=== PATIENT | female | born 1955 | race Caucasian/White ===

== ENCOUNTER 2020-10-24 11:15 | Emergency (ER) | payer MEDICAID ==
[~2020-10-24] VITALS: Ht 149.9 cm; Wt 59.1 kg
[~2020-10-24 11:15] MED LIST: LEVO50 PO; QUET100T PO; RISP1TAB7 PO; SERT-162 PO
[2020-10-24] MEDS ORDERED: AmLODIPine BESYLATE 5 MG TABLET PO ONE (14:00)
[2020-10-24 14:23] VITALS: BP 147/78
== END 2020-10-24 14:27 | disposition home or self-care (01) ==
LOC: EMS 13:24
DX: I10 Essential (primary) hypertension (principal); F32.9 Major depressive disorder, single episode, unspecified; F20.9 Schizophrenia, unspecified; F14.90 Cocaine use, unspecified, uncomplicated; F12.90 Cannabis use, unspecified, uncomplicated; Z76.0 Encounter for issue of repeat prescription
CPT/HCPCS: 99283

== ENCOUNTER 2021-04-11 05:17 | Emergency (ER) | payer MEDICAID ==
[~2021-04-11] VITALS: Ht 149.9 cm; Wt 63.6 kg
[2021-04-11] MEDS ORDERED: ACETAMINOPHEN 500 MG TABLET PO ONE (05:30)
[2021-04-11 05:33] VITALS: BP 162/98
== END 2021-04-11 07:10 | disposition home or self-care (01) ==
LOC: EMS 05:17
DX: S09.90XA Unspecified injury of head, initial encounter (principal); E05.90 Thyrotoxicosis, unspecified without thyrotoxic crisis or storm; F20.9 Schizophrenia, unspecified; F32.9 Major depressive disorder, single episode, unspecified; I10 Essential (primary) hypertension; F15.90 Other stimulant use, unspecified, uncomplicated; F14.90 Cocaine use, unspecified, uncomplicated; F12.90 Cannabis use, unspecified, uncomplicated; X58.XXXA Exposure to other specified factors, initial encounter; Y93.89 Activity, other specified; Y92.89 Other specified places as the place of occurrence of the external cause; Y99.8 Other external cause status
CPT/HCPCS: 70450; 72125; 99284

== ENCOUNTER 2021-06-07 17:11 | Inpatient (IN) | payer MEDICAID, OTHER ==
[~2021-06-07] VITALS: Ht 149.9 cm; Wt 55.8 kg
[2021-06-07 18:29] LABS: BASOPHILS % (AUTO) 0.9 % (0.0-2.0); EOSINOPHILS % (AUTO) 1.7 % (1.0-6.0); HEMOGLOBIN 14.2 g/dL (12.0-16.0); LYMPHOCYTES # (AUTO) 1.6 K/uL (1.0-4.8); LYMPHOCYTES % (AUTO) 21.2 % (22.0-44.0); MEAN CORPUSCULAR HEMOGLOBIN 29.1 pg (26.0-34.0); MEAN CORPUSCULAR HGB CONC 34.6 G/dL (31.0-37.0); MEAN CORPUSCULAR VOLUME 84 fL (80-100); MONOCYTES # (AUTO) 0.6 K/uL (0.1-1.0); NEUTROPHILS # (AUTO) 5.2 K/uL (1.8-7.7); NEUTROPHILS % (AUTO) 68.2 % (40.0-70.0); PLATELET COUNT (AUTO) 311 K/uL (150-450); RED BLOOD CELL COUNT(AUTO) 4.87 MIL/uL (4.00-5.20); RED CELL DISTRIBUTION WIDTH 13.6 % (11.5-14.5)
[2021-06-07 18:42] LABS: ANION GAP 11 mmol/L (8-16); CALCIUM, TOTAL 9.8 mg/dL (8.8-10.5); CARBON DIOXIDE 28 mmol/L (22-29); CHLORIDE 103 mmol/L (98-107); CREATININE 0.76 mg/dL (0.60-1.30); GLOMERULAR FILTR. RATE CALC > 60 mL/min (>60); GLUCOSE,RANDOM 106 mg/dL (70-110); POTASSIUM 3.5 mmol/L (3.5-5.1); SODIUM SERUM 142 mmol/L (136-145); UREA NITROGEN, BLOOD 10 mg/dL (7-18)
[2021-06-07 18:49] LABS: ALANINE AMINOTRANSFERASE 19 U/L (12-78); ALBUMIN 3.6 g/dL (3.4-5.0); ALKALINE PHOSPHATASE 71 U/L (46-116); ASPARTATE AMINOTRANSFERASE 21 U/L (15-37); BILIRUBIN,TOTAL 0.6 mg/dL (0.1-1.0); TOTAL PROTEIN, SERUM 7.9 g/dL (6.4-8.2)
[2021-06-07] MEDS ORDERED: DiphenhydrAMINE HCL 50 MG/ML VIAL IM ONE (21:00)
[2021-06-07] MEDS ORDERED: HALOPERIDOL LACTATE 5 MG/ML VIAL IM ONE (21:00)
[2021-06-07] MEDS ORDERED: LORazepam 2 MG/ML VIAL IM ONE (21:00)
[2021-06-07 21:02] LABS: COVID AG,FIA SOURCE NASOPHARYNGEAL
[2021-06-07 21:20] LABS: CHOL/HDL RATIO 2.3 (3.9-5.7); CHOLESTEROL 116 mg/dL (131-200); FREE T4 (FREE THYROXINE) 1.07 ng/dL (0.76-1.46); HDL CHOLESTEROL 50 mg/dL (40-60); LDL CHOL (CALC.) 55 mg/dL (0-130); THYROID STIMULATING HORMONE 0.42 uIU/mL (0.36-3.74); TRIGLYCERIDES 56 mg/dL (15-150)
[2021-06-07] MEDS ORDERED: LORazepam 2 MG TABLET PO ONE (21:30)
[2021-06-07] MEDS ORDERED: HALOPERIDOL 5 MG TABLET PO ONE (21:30)
[2021-06-07] MEDS ORDERED: DiphenhydrAMINE HCL 25 MG CAPSULE PO ONE (21:30)
[2021-06-08 04:47] VITALS: BP 99/69
[2021-06-08 09:31] VITALS: BP 121/71
[2021-06-08] MEDS ORDERED: PETROLATUM,WHITE 28 GM JELLY TP PRN (11:00)
[2021-06-08] MEDS ORDERED: GuaiFENesin/D-METHORPHAN [SUGAR-FREE] 200-20MG/10 ML SYRUP UDCUP PO PRN (11:00)
[2021-06-08] MEDS ORDERED: IBUPROFEN 400 MG TABLET PO PRN (11:00)
[2021-06-08] MEDS ORDERED: MAG HYDROX/AL HYDROX/SIMETH ES 30 ML SUSPENSION UDCUP PO PRN (11:00)
[2021-06-08] MEDS ORDERED: ALBUTEROL SULFATE HFA 90 MCG/PUFF 8 GM INHALER IH PRN (11:00)
[2021-06-08] MEDS ORDERED: ONDANSETRON HCL 4 MG TABLET PO PRN (11:00)
[2021-06-08] MEDS ORDERED: CloNIDine HCL 0.1 MG TABLET PO PRN (11:00)
[2021-06-08] MEDS ORDERED: ACETAMINOPHEN 325 MG TABLET PO PRN (11:00)
[2021-06-08] MEDS ORDERED: LOPERAMIDE HCL 2 MG CAPSULE PO PRN (11:00)
[2021-06-08] MEDS ORDERED: NICOTINE 14 MG/24 HOUR PATCH TD PRN (11:00)
[2021-06-08] MEDS: QUEtiapine FUMARATE 100 MG TABLET PO SCH ×2 (15:11→20:13)
[2021-06-08] MEDS: BuPROPion HCL 150 MG SR TABLET PO SCH (15:11)
[2021-06-08 16:22] VITALS: BP 131/84
[2021-06-09] MEDS ORDERED: INFLUENZA VIRUS VACCINE QVS 2021-22 (6MO+)/PF 60 MCG/0.5 ML SYRINGE IM. ONE (00:30)
[2021-06-09] MEDS ORDERED: PNEUMOCOCCAL VACCINE POLYVALENT 0.5 ML VIAL [PPSV23] IM. ONE (02:00)
[2021-06-09 05:32] VITALS: BP 109/62
[2021-06-09] MEDS: LEVOTHYROXINE SODIUM 50 MCG TABLET PO SCH (06:16)
[2021-06-09] MEDS: QUEtiapine FUMARATE 100 MG TABLET PO SCH ×2 (08:26→20:40)
[2021-06-09] MEDS: BuPROPion HCL 150 MG SR TABLET PO SCH (08:26)
[2021-06-09 08:50] VITALS: BP 143/94
[2021-06-09 16:16] VITALS: BP 142/78
[2021-06-10 00:19] VITALS: BP 134/73
[2021-06-10] MEDS: LEVOTHYROXINE SODIUM 50 MCG TABLET PO SCH (06:17)
[2021-06-10 08:37] VITALS: BP 146/99
[2021-06-10] MEDS: QUEtiapine FUMARATE 100 MG TABLET PO SCH ×2 (08:43→20:17)
[2021-06-10] MEDS: BuPROPion HCL 150 MG SR TABLET PO SCH (08:43)
[2021-06-10 16:41] VITALS: BP 121/80
[2021-06-11 00:29] VITALS: BP 115/69
[2021-06-11] MEDS: LEVOTHYROXINE SODIUM 50 MCG TABLET PO SCH (06:32)
[2021-06-11] MEDS: BuPROPion HCL 150 MG SR TABLET PO SCH (08:36)
[2021-06-11] MEDS: QUEtiapine FUMARATE 100 MG TABLET PO SCH ×2 (08:36→20:22)
[2021-06-11 08:40] VITALS: BP 108/58
[2021-06-11 16:20] VITALS: BP 142/84
[2021-06-12 00:57] VITALS: BP 126/64
[2021-06-12] MEDS: LEVOTHYROXINE SODIUM 50 MCG TABLET PO SCH (06:20)
[2021-06-12 08:45] VITALS: BP 137/78
[2021-06-12] MEDS: HALOPERIDOL 5 MG TABLET PO PRN ×2 (09:40→16:31)
[2021-06-12] MEDS: QUEtiapine FUMARATE 100 MG TABLET PO SCH ×2 (09:40→20:24)
[2021-06-12] MEDS: BuPROPion HCL 150 MG SR TABLET PO SCH (09:40)
[2021-06-12] MEDS: LORazepam 2 MG TABLET PO PRN (16:31)
[2021-06-12 16:47] VITALS: BP 149/99
[2021-06-12] MEDS: DOCUSATE SODIUM 100 MG CAPSULE PO PRN (23:09)
[2021-06-13 01:06] VITALS: BP 126/85
[2021-06-13] MEDS: LEVOTHYROXINE SODIUM 50 MCG TABLET PO SCH (06:30)
[2021-06-13] MEDS: MAGNESIUM HYDROXIDE SUSPENSION 30 ML UDCUP PO PRN (06:51)
[2021-06-13] MEDS: QUEtiapine FUMARATE 100 MG TABLET PO SCH ×2 (08:14→20:35)
[2021-06-13] MEDS: LORazepam 2 MG TABLET PO PRN ×2 (08:14→16:05)
[2021-06-13] MEDS: BuPROPion HCL 150 MG SR TABLET PO SCH (08:14)
[2021-06-13] MEDS: HALOPERIDOL 5 MG TABLET PO PRN (08:14)
[2021-06-13 08:28] VITALS: BP 141/92
[2021-06-13 09:00] LABS: GLUCOMETER DEV NAME(LOC) POC.BV
[2021-06-13] MEDS ORDERED: CloNIDine HCL 0.1 MG TABLET PO ONE (18:30)
[2021-06-13] MEDS: AmLODIPine BESYLATE 5 MG TABLET PO SCH (20:44)
[2021-06-14 00:26] VITALS: BP 139/84
[2021-06-14] MEDS: LEVOTHYROXINE SODIUM 50 MCG TABLET PO SCH (06:39)
[2021-06-14 08:29] VITALS: BP 130/77
[2021-06-14] MEDS: QUEtiapine FUMARATE 100 MG TABLET PO SCH ×2 (09:35→20:14)
[2021-06-14] MEDS: BuPROPion HCL 150 MG SR TABLET PO SCH (09:35)
[2021-06-14] MEDS: AmLODIPine BESYLATE 5 MG TABLET PO SCH (09:35)
[2021-06-14 16:24] VITALS: BP 115/62
[2021-06-14] MEDS: MAGNESIUM HYDROXIDE SUSPENSION 30 ML UDCUP PO PRN (20:14)
[2021-06-14] MEDS ORDERED: BISACODYL 5 MG EC TABLET PO PRN (21:15)
[2021-06-15 01:23] VITALS: BP 121/72
[2021-06-15] MEDS: LEVOTHYROXINE SODIUM 50 MCG TABLET PO SCH (06:18)
[2021-06-15 08:21] VITALS: BP 126/96
[2021-06-15] MEDS: QUEtiapine FUMARATE 100 MG TABLET PO SCH ×2 (08:37→20:46)
[2021-06-15] MEDS: BuPROPion HCL 150 MG SR TABLET PO SCH (08:37)
[2021-06-15] MEDS: AmLODIPine BESYLATE 5 MG TABLET PO SCH (08:37)
[2021-06-15 16:17] VITALS: BP 122/86
[2021-06-15] MEDS ORDERED: DiphenhydrAMINE HCL 50 MG/ML VIAL ONE (19:38)
[2021-06-15] MEDS ORDERED: HALOPERIDOL LACTATE 5 MG/ML VIAL ONE (19:38)
[2021-06-15] MEDS ORDERED: LORazepam 2 MG/ML VIAL ONE (19:38)
[2021-06-15] MEDS ORDERED: DiphenhydrAMINE HCL 50 MG/ML VIAL IM ONE (20:00)
[2021-06-15] MEDS ORDERED: HALOPERIDOL LACTATE 5 MG/ML VIAL IM ONE (20:00)
[2021-06-15] MEDS ORDERED: LORazepam 2 MG/ML VIAL IM ONE (20:00)
[2021-06-16 01:49] VITALS: BP 123/75
[2021-06-16] MEDS: LEVOTHYROXINE SODIUM 50 MCG TABLET PO SCH (06:30)
[2021-06-16 08:39] VITALS: BP 144/102
[2021-06-16] MEDS: BuPROPion HCL 150 MG SR TABLET PO SCH (08:39)
[2021-06-16] MEDS: AmLODIPine BESYLATE 5 MG TABLET PO SCH (08:40)
[2021-06-16] MEDS: LORazepam 2 MG TABLET PO PRN (08:40)
[2021-06-16] MEDS: QUEtiapine FUMARATE 100 MG TABLET PO SCH (08:40)
[2021-06-16] MEDS ORDERED: CHOL-35 PO (11:03)
[2021-06-16] MEDS ORDERED: LOSA-382 PO (11:03)
[2021-06-16] MEDS ORDERED: PRAZ2 PO (11:03)
[2021-06-16] MEDS ORDERED: BUPR-49 PO (11:03)
[2021-06-16 16:28] VITALS: BP 129/88
[2021-06-16] MEDS: QUEtiapine FUMARATE 200 MG TABLET PO SCH (20:10)
[2021-06-17 01:32] VITALS: BP 124/82
[2021-06-17] MEDS: LEVOTHYROXINE SODIUM 50 MCG TABLET PO SCH (06:29)
[2021-06-17 08:12] VITALS: BP 115/81
[2021-06-17] MEDS: AmLODIPine BESYLATE 5 MG TABLET PO SCH (09:21)
[2021-06-17] MEDS: QUEtiapine FUMARATE 200 MG TABLET PO SCH ×2 (09:21→20:34)
[2021-06-17] MEDS: BuPROPion HCL 150 MG SR TABLET PO SCH (09:21)
[2021-06-17 16:31] VITALS: BP 121/80
[2021-06-18] MEDS: LEVOTHYROXINE SODIUM 50 MCG TABLET PO SCH (06:48)
[2021-06-18 08:54] VITALS: BP 131/78
[2021-06-18] MEDS: BuPROPion HCL 150 MG SR TABLET PO SCH (09:47)
[2021-06-18] MEDS: MAGNESIUM HYDROXIDE SUSPENSION 30 ML UDCUP PO PRN (09:48)
[2021-06-18] MEDS: QUEtiapine FUMARATE 200 MG TABLET PO SCH ×2 (09:48→20:32)
[2021-06-18] MEDS: AmLODIPine BESYLATE 5 MG TABLET PO SCH (09:48)
[2021-06-18 16:37] VITALS: BP 117/78
[2021-06-18] MEDS: ZOLPIDEM TARTRATE 10 MG TABLET PO PRN (20:32)
[2021-06-19 02:59] VITALS: BP 112/73
[2021-06-19] MEDS: LORazepam 2 MG TABLET PO PRN (03:01)
[2021-06-19] MEDS: LEVOTHYROXINE SODIUM 50 MCG TABLET PO SCH (06:05)
[2021-06-19 08:39] VITALS: BP 130/65
[2021-06-19] MEDS: QUEtiapine FUMARATE 200 MG TABLET PO SCH ×2 (08:49→20:32)
[2021-06-19] MEDS: AmLODIPine BESYLATE 5 MG TABLET PO SCH (08:51)
[2021-06-19] MEDS: BuPROPion HCL 150 MG SR TABLET PO SCH (08:55)
[2021-06-19] MEDS: MAGNESIUM HYDROXIDE SUSPENSION 30 ML UDCUP PO PRN (09:20)
[2021-06-19] MEDS: DOCUSATE SODIUM 100 MG CAPSULE PO PRN (09:20)
[2021-06-19 16:24] VITALS: BP 106/78
[2021-06-20 03:04] VITALS: BP 109/76
[2021-06-20] MEDS: LEVOTHYROXINE SODIUM 50 MCG TABLET PO SCH (06:31)
[2021-06-20 08:22] VITALS: BP 123/72
[2021-06-20] MEDS: BuPROPion HCL 150 MG SR TABLET PO SCH (08:43)
[2021-06-20] MEDS: QUEtiapine FUMARATE 200 MG TABLET PO SCH ×2 (08:43→20:22)
[2021-06-20] MEDS: AmLODIPine BESYLATE 5 MG TABLET PO SCH (08:43)
[2021-06-20 10:16] LABS: GLUCOMETER DEV NAME(LOC) POC.BV
[2021-06-20 16:13] VITALS: BP 120/78
[2021-06-20] MEDS: DOCUSATE SODIUM 100 MG CAPSULE PO PRN (21:28)
[2021-06-21 00:32] VITALS: BP 107/68
[2021-06-21] MEDS: LEVOTHYROXINE SODIUM 50 MCG TABLET PO SCH (06:48)
[2021-06-21 08:31] VITALS: BP 109/59
[2021-06-21 09:45] VITALS: BP 123/86
[2021-06-21] MEDS: QUEtiapine FUMARATE 200 MG TABLET PO SCH ×2 (09:47→20:08)
[2021-06-21] MEDS: BuPROPion HCL 150 MG SR TABLET PO SCH (09:47)
[2021-06-21] MEDS: AmLODIPine BESYLATE 5 MG TABLET PO SCH (09:47)
[2021-06-21 16:13] VITALS: BP 103/76
[2021-06-21] MEDS: DOCUSATE SODIUM 100 MG CAPSULE PO PRN (17:30)
[2021-06-22 01:10] VITALS: BP 104/68
[2021-06-22] MEDS: LEVOTHYROXINE SODIUM 50 MCG TABLET PO SCH (06:06)
[2021-06-22 08:27] VITALS: BP 134/78
[2021-06-22] MEDS: AmLODIPine BESYLATE 5 MG TABLET PO SCH (10:00)
[2021-06-22] MEDS: QUEtiapine FUMARATE 200 MG TABLET PO SCH ×2 (10:00→20:08)
[2021-06-22] MEDS: BuPROPion HCL 150 MG SR TABLET PO SCH (10:00)
[2021-06-22 16:09] VITALS: BP 121/84
[2021-06-22] MEDS: MAGNESIUM HYDROXIDE SUSPENSION 30 ML UDCUP PO PRN (20:08)
[2021-06-23 01:55] VITALS: BP 112/79
[2021-06-23] MEDS: ZOLPIDEM TARTRATE 10 MG TABLET PO PRN (02:03)
[2021-06-23] MEDS: LEVOTHYROXINE SODIUM 50 MCG TABLET PO SCH (06:08)
[2021-06-23 09:06] VITALS: BP 125/76
[2021-06-23] MEDS: QUEtiapine FUMARATE 200 MG TABLET PO SCH ×2 (09:13→20:37)
[2021-06-23] MEDS: BuPROPion HCL 150 MG SR TABLET PO SCH (09:13)
[2021-06-23] MEDS: AmLODIPine BESYLATE 5 MG TABLET PO SCH (09:13)
[2021-06-23 16:05] VITALS: BP 129/64
[2021-06-24] MEDS: LEVOTHYROXINE SODIUM 50 MCG TABLET PO SCH (06:03)
[2021-06-24 08:23] VITALS: BP 128/78
[2021-06-24] MEDS: QUEtiapine FUMARATE 200 MG TABLET PO SCH ×2 (08:23→20:34)
[2021-06-24] MEDS: AmLODIPine BESYLATE 5 MG TABLET PO SCH (08:23)
[2021-06-24] MEDS: BuPROPion HCL 150 MG SR TABLET PO SCH (08:23)
[2021-06-24] MEDS: LORazepam 2 MG TABLET PO PRN (08:27)
[2021-06-24 16:14] VITALS: BP 117/71
[2021-06-25 01:56] VITALS: BP 120/84
[2021-06-25] MEDS: LEVOTHYROXINE SODIUM 50 MCG TABLET PO SCH (06:30)
[2021-06-25] MEDS: AmLODIPine BESYLATE 5 MG TABLET PO SCH (08:17)
[2021-06-25] MEDS: BuPROPion HCL 150 MG SR TABLET PO SCH (08:17)
[2021-06-25] MEDS: QUEtiapine FUMARATE 200 MG TABLET PO SCH ×2 (08:17→20:16)
[2021-06-25 08:18] VITALS: BP 114/65
[2021-06-25 16:15] VITALS: BP 109/75
[2021-06-26 00:29] VITALS: BP 128/85
[2021-06-26] MEDS: ZOLPIDEM TARTRATE 10 MG TABLET PO PRN (00:31)
[2021-06-26] MEDS: LEVOTHYROXINE SODIUM 50 MCG TABLET PO SCH (06:19)
[2021-06-26 08:13] VITALS: BP 113/70
[2021-06-26] MEDS: AmLODIPine BESYLATE 5 MG TABLET PO SCH (09:28)
[2021-06-26] MEDS: QUEtiapine FUMARATE 200 MG TABLET PO SCH ×2 (09:28→20:33)
[2021-06-26] MEDS: BuPROPion HCL 150 MG SR TABLET PO SCH (09:28)
[2021-06-26 16:15] VITALS: BP 109/75
[2021-06-27] MEDS: ZOLPIDEM TARTRATE 10 MG TABLET PO PRN (00:14)
[2021-06-27 01:10] VITALS: BP 119/78
[2021-06-27] MEDS: LEVOTHYROXINE SODIUM 50 MCG TABLET PO SCH (06:28)
[2021-06-27] MEDS: QUEtiapine FUMARATE 200 MG TABLET PO SCH ×2 (08:24→20:35)
[2021-06-27] MEDS: AmLODIPine BESYLATE 5 MG TABLET PO SCH (08:24)
[2021-06-27] MEDS: BuPROPion HCL 150 MG SR TABLET PO SCH (08:24)
[2021-06-27 08:32] VITALS: BP 117/63
[2021-06-27 09:30] LABS: GLUCOMETER DEV NAME(LOC) POC.BV
[2021-06-27 16:07] VITALS: BP 111/66
[2021-06-28 00:34] VITALS: BP 123/71
[2021-06-28] MEDS: LEVOTHYROXINE SODIUM 50 MCG TABLET PO SCH (06:35)
[2021-06-28 08:16] VITALS: BP 131/78
[2021-06-28] MEDS: AmLODIPine BESYLATE 5 MG TABLET PO SCH (08:16)
[2021-06-28] MEDS: QUEtiapine FUMARATE 200 MG TABLET PO SCH ×2 (08:16→20:29)
[2021-06-28] MEDS: BuPROPion HCL 150 MG SR TABLET PO SCH (08:16)
[2021-06-28] MEDS ORDERED: AmLODIPine BESYLATE 2.5 MG TABLET PO ONE (12:30)
[2021-06-28 16:31] VITALS: BP 116/78
[2021-06-28] MEDS: MECLIZINE HCL 25 MG TABLET PO PRN (20:29)
[2021-06-29] MEDS: LEVOTHYROXINE SODIUM 50 MCG TABLET PO SCH (06:24)
[2021-06-29 08:17] VITALS: BP 117/74
[2021-06-29] MEDS: QUEtiapine FUMARATE 200 MG TABLET PO SCH ×2 (08:37→20:12)
[2021-06-29] MEDS: AmLODIPine BESYLATE 5 MG TABLET PO SCH (08:37)
[2021-06-29] MEDS: BuPROPion HCL 150 MG SR TABLET PO SCH (08:37)
[2021-06-29 16:17] VITALS: BP 110/73
[2021-06-29] MEDS: MECLIZINE HCL 25 MG TABLET PO PRN (16:26)
[2021-06-30 00:34] VITALS: BP 118/72
[2021-06-30] MEDS: LEVOTHYROXINE SODIUM 50 MCG TABLET PO SCH (06:11)
[2021-06-30 08:13] VITALS: BP 102/65
[2021-06-30] MEDS: BuPROPion HCL 150 MG SR TABLET PO SCH (08:48)
[2021-06-30] MEDS: QUEtiapine FUMARATE 200 MG TABLET PO SCH ×2 (08:48→20:15)
[2021-06-30] MEDS: AmLODIPine BESYLATE 5 MG TABLET PO SCH (08:49)
[2021-06-30] MEDS: HALOPERIDOL 5 MG TABLET PO PRN (16:06)
[2021-06-30 16:10] VITALS: BP 108/76
[2021-06-30] MEDS: MECLIZINE HCL 25 MG TABLET PO PRN (19:24)
[2021-07-01 00:40] VITALS: BP 111/71
[2021-07-01] MEDS: LEVOTHYROXINE SODIUM 50 MCG TABLET PO SCH (06:17)
[2021-07-01 08:19] VITALS: BP 117/74
[2021-07-01] MEDS: AmLODIPine BESYLATE 5 MG TABLET PO SCH (08:27)
[2021-07-01] MEDS: QUEtiapine FUMARATE 200 MG TABLET PO SCH ×2 (08:27→20:54)
[2021-07-01] MEDS: BuPROPion HCL 150 MG SR TABLET PO SCH (08:27)
[2021-07-01] MEDS: MECLIZINE HCL 25 MG TABLET PO PRN (12:17)
[2021-07-01 16:12] VITALS: BP 116/75
[2021-07-01] MEDS: MAGNESIUM HYDROXIDE SUSPENSION 30 ML UDCUP PO PRN (19:42)
[2021-07-02 00:16] VITALS: BP 120/81
[2021-07-02] MEDS: LEVOTHYROXINE SODIUM 50 MCG TABLET PO SCH (06:52)
[2021-07-02] MEDS: BuPROPion HCL 150 MG SR TABLET PO SCH (08:45)
[2021-07-02] MEDS: QUEtiapine FUMARATE 200 MG TABLET PO SCH ×2 (08:45→20:31)
[2021-07-02] MEDS: AmLODIPine BESYLATE 5 MG TABLET PO SCH (08:45)
[2021-07-02 08:59] VITALS: BP 114/74
[2021-07-02] MEDS: MECLIZINE HCL 25 MG TABLET PO PRN ×2 (12:25→20:29)
[2021-07-02 14:56] LABS: GLUCOMETER DEV NAME(LOC) POC.BV
[2021-07-02 16:13] VITALS: BP 117/78
[2021-07-02] MEDS: MAGNESIUM HYDROXIDE SUSPENSION 30 ML UDCUP PO PRN (20:30)
[2021-07-03 00:53] VITALS: BP 124/82
[2021-07-03] MEDS: LEVOTHYROXINE SODIUM 50 MCG TABLET PO SCH (06:24)
[2021-07-03 08:12] VITALS: BP 116/85
[2021-07-03] MEDS: AmLODIPine BESYLATE 5 MG TABLET PO SCH (08:31)
[2021-07-03] MEDS: QUEtiapine FUMARATE 200 MG TABLET PO SCH (08:31)
[2021-07-03] MEDS: BuPROPion HCL 150 MG SR TABLET PO SCH (08:31)
[2021-07-03] MEDS: MECLIZINE HCL 25 MG TABLET PO PRN (08:59)
[2021-07-03] MEDS ORDERED: QUET200T PO ×2 (09:07)
[2021-07-03] MEDS ORDERED: BUPR150SR PO ×2 (09:08→10:11)
[2021-07-03] MEDS ORDERED: AMLO-257 PO ×2 (09:09→14:05)
[2021-07-03] MEDS ORDERED: QUET200T30 PO (10:11)
[2021-07-03] MEDS ORDERED: CHOL200074 PO (14:05)
[2021-07-03] MEDS ORDERED: LOSA-382 PO (14:05)
[2021-07-03] MEDS ORDERED: LEVO50 PO (14:05)
== END 2021-07-03 09:55 | disposition home or self-care (01) | DRG 750 ==
LOC: EMS 17:16 → B2S 06-08 01:40
PROVIDERS: ADMIT Psychiatry & Neurology Child & Adolescent Psychiatry; ATTEND Psychiatry & Neurology Child & Adolescent Psychiatry
DX: F25.1 Schizoaffective disorder, depressive type (principal); R45.851 Suicidal ideations; Z59.00 Homelessness unspecified; B18.2 Chronic viral hepatitis C; F41.9 Anxiety disorder, unspecified; I10 Essential (primary) hypertension; E89.0 Postprocedural hypothyroidism; F17.200 Nicotine dependence, unspecified, uncomplicated; F32.A Depression, unspecified; Z20.822 Contact with and (suspected) exposure to COVID-19; Z79.899 Other long term (current) drug therapy
CPT/HCPCS: 80053; 80061; 84439; 84443; 85025; 87081; 90686; 90732; 99285; G0480; J1200; J1630; J2060

== ENCOUNTER 2021-08-16 15:15 | Inpatient (IN) | payer MEDICAID, OTHER ==
[~2021-08-16] VITALS: Ht 149.9 cm; Wt 68.1 kg
[~2021-08-16 15:15] MED LIST changes: +AMLO-257 PO; +BUPR-290 PO; +CHOL200074 PO; +LOSA-382 PO; -QUET100T PO; +QUET200T PO; +QUET200T30 PO; -RISP1TAB7 PO; -SERT-162 PO
[2021-08-16 16:21] LABS: EOSINOPHILS % (AUTO) 4.2 % (1.0-6.0); HEMATOCRIT 36.9 % (36-46); HEMOGLOBIN 12.7 g/dL (12.0-16.0); LYMPHOCYTES # (AUTO) 1.3 K/uL (1.0-4.8); LYMPHOCYTES % (AUTO) 25.5 % (22.0-44.0); MEAN CORPUSCULAR HEMOGLOBIN 29.7 pg (26.0-34.0); MEAN CORPUSCULAR HGB CONC 34.4 G/dL (31.0-37.0); MEAN CORPUSCULAR VOLUME 87 fL (80-100); MONOCYTES # (AUTO) 0.4 K/uL (0.1-1.0); MONOCYTES % (AUTO) 7.2 % (2.0-9.0); NEUTROPHILS # (AUTO) 3.1 K/uL (1.8-7.7); NEUTROPHILS % (AUTO) 62.1 % (40.0-70.0); PLATELET COUNT (AUTO) 254 K/uL (150-450); RED BLOOD CELL COUNT(AUTO) 4.26 MIL/uL (4.00-5.20); RED CELL DISTRIBUTION WIDTH 13.9 % (11.5-14.5)
[2021-08-16 16:30] LABS: APPEARANCE,URINE HAZY (CLEAR); BILIRUBIN,URINE NEGATIVE (NEGATIVE); GLUCOSE, URINE (UA) NEGATIVE (NEGATIVE); KETONES,URINE NEGATIVE (NEGATIVE); LEUKOCYTE ESTERASE ,URINE SMALL (NEGATIVE); NITRATE,URINE POSITIVE (NEGATIVE); OCCULT BLOOD,URINE NEGATIVE (NEGATIVE); PROTEIN,URINE NEGATIVE (NEGATIVE); SPECIFIC GRAVITIY, URINE 1.014 (1.003-1.030); UROBILINOGEN,URINE <=1.0 mg/dL (<=1.0)
[2021-08-16 16:36] LABS: AMPHET/METH SCREEN,URINE POSITIVE (NEGATIVE); BARBITURATE SCREEN, URINE NEGATIVE (NEGATIVE); BENZODIAZEPINES SCREEN,URINE NEGATIVE (NEGATIVE); CANNABINOID SCREEN,URINE NEGATIVE (NEGATIVE); COCAINE SCREEN,URINE NEGATIVE (NEGATIVE); METHADONE SCREEN, URINE NEGATIVE (NEGATIVE); OPIATE SCREEN,URINE NEGATIVE (NEGATIVE)
[2021-08-16 16:38] LABS: PHENCYCLIDINE SCREEN,URINE NEGATIVE (NEGATIVE)
[2021-08-16 16:41] LABS: ANION GAP 9 mmol/L (8-16); CALCIUM, TOTAL 8.4 mg/dL (8.8-10.5); CARBON DIOXIDE 25 mmol/L (22-29); CHLORIDE 108 mmol/L (98-107); CREATININE 0.58 mg/dL (0.60-1.30); GLUCOSE,RANDOM 90 mg/dL (70-110); POTASSIUM 3.6 mmol/L (3.5-5.1); SODIUM SERUM 142 mmol/L (136-145); UREA NITROGEN, BLOOD 10 mg/dL (7-18)
[2021-08-16 16:42] LABS: GLOMERULAR FILTR. RATE CALC > 60 mL/min (>60)
[2021-08-16] MEDS ORDERED: LORazepam 1 MG TABLET PO ONE (16:45)
[2021-08-16] MEDS ORDERED: DiphenhydrAMINE HCL 25 MG CAPSULE PO ONE (16:45)
[2021-08-16] MEDS ORDERED: HALOPERIDOL 5 MG TABLET PO ONE (16:45)
[2021-08-16 16:53] LABS: ALANINE AMINOTRANSFERASE 43 U/L (12-78); ALBUMIN 3.2 g/dL (3.4-5.0); ALKALINE PHOSPHATASE 71 U/L (46-116); ASPARTATE AMINOTRANSFERASE 29 U/L (15-37); BILIRUBIN,TOTAL 0.5 mg/dL (0.1-1.0); HCG,QUANTITATIVE 3 mIU/mL (0-6); THYROID STIMULATING HORMONE 0.94 uIU/mL (0.36-3.74); TOTAL PROTEIN, SERUM 6.7 g/dL (6.4-8.2)
[2021-08-16 16:57] LABS: BACTERIA,URINE Many /HPF (None Seen); RBC,URINE None Seen /HPF (0-2); SQUAMOUS EPITHELIAL CELL,UR Few /LPF (None Seen)
[2021-08-16] MEDS ORDERED: CEPHALEXIN MONOHYDRATE 500 MG CAPSULE PO ONE (17:00)
[2021-08-16 17:03] LABS: COVID AG,FIA SOURCE NASAL SWAB
[2021-08-16 19:00] VITALS: BP 126/86
[2021-08-17] MEDS ORDERED: LEVOTHYROXINE SODIUM 50 MCG TABLET PO SCH (07:00)
[2021-08-17 08:55] VITALS: BP 147/72
[2021-08-17] MEDS ORDERED: AmLODIPine BESYLATE 5 MG TABLET PO SCH (09:00)
[2021-08-17] MEDS: BuPROPion HCL 150 MG SR TABLET PO SCH (15:18)
[2021-08-17] MEDS: QUEtiapine FUMARATE 200 MG TABLET PO SCH ×2 (15:18→20:38)
[2021-08-17] MEDS ORDERED: ALBUTEROL SULFATE HFA 90 MCG/PUFF 8 GM INHALER IH PRN (15:45)
[2021-08-17] MEDS ORDERED: LOPERAMIDE HCL 2 MG CAPSULE PO PRN (15:45)
[2021-08-17] MEDS ORDERED: DOCUSATE SODIUM 100 MG CAPSULE PO PRN (15:45)
[2021-08-17] MEDS ORDERED: NICOTINE 14 MG/24 HOUR PATCH TD PRN (15:45)
[2021-08-17] MEDS ORDERED: ONDANSETRON HCL 4 MG TABLET PO PRN (15:45)
[2021-08-17] MEDS ORDERED: CloNIDine HCL 0.1 MG TABLET PO PRN (15:45)
[2021-08-17] MEDS ORDERED: ACETAMINOPHEN 325 MG TABLET PO PRN (15:45)
[2021-08-17] MEDS ORDERED: GuaiFENesin/D-METHORPHAN [SUGAR-FREE] 200-20MG/10 ML SYRUP UDCUP PO PRN (15:45)
[2021-08-17] MEDS ORDERED: PETROLATUM,WHITE 28 GM JELLY TP PRN (15:45)
[2021-08-17] MEDS ORDERED: MAGNESIUM HYDROXIDE SUSPENSION 30 ML UDCUP PO PRN (15:45)
[2021-08-17 16:54] VITALS: BP 116/65
[2021-08-18] MEDS: LEVOTHYROXINE SODIUM 50 MCG TABLET PO SCH (06:44)
[2021-08-18] MEDS: LOSARTAN POTASSIUM 50 MG TABLET PO SCH (08:48)
[2021-08-18] MEDS: CHOLECALCIFEROL (VIT D3) 1,000 UNITS [25 MCG] TABLET PO SCH (08:48)
[2021-08-18] MEDS: BuPROPion HCL 150 MG SR TABLET PO SCH (08:48)
[2021-08-18] MEDS: AmLODIPine BESYLATE 5 MG TABLET PO SCH (08:49)
[2021-08-18] MEDS: QUEtiapine FUMARATE 200 MG TABLET PO SCH ×2 (08:49→20:04)
[2021-08-18 09:33] VITALS: BP 152/94
[2021-08-18 16:27] VITALS: BP 140/87
[2021-08-18] MEDS: CIPROFLOXACIN HCL 500 MG TABLET PO SCH (21:25)
[2021-08-19 02:04] VITALS: BP 127/87
[2021-08-19] MEDS: ZOLPIDEM TARTRATE 10 MG TABLET PO PRN (02:04)
[2021-08-19] MEDS: LEVOTHYROXINE SODIUM 50 MCG TABLET PO SCH (06:26)
[2021-08-19 08:30] VITALS: BP 149/89
[2021-08-19] MEDS: LOSARTAN POTASSIUM 50 MG TABLET PO SCH (08:36)
[2021-08-19] MEDS: QUEtiapine FUMARATE 200 MG TABLET PO SCH ×2 (08:36→20:12)
[2021-08-19] MEDS: BuPROPion HCL 150 MG SR TABLET PO SCH (08:36)
[2021-08-19] MEDS: CHOLECALCIFEROL (VIT D3) 1,000 UNITS [25 MCG] TABLET PO SCH (08:36)
[2021-08-19] MEDS: AmLODIPine BESYLATE 5 MG TABLET PO SCH (08:36)
[2021-08-19] MEDS: CIPROFLOXACIN HCL 500 MG TABLET PO SCH ×2 (09:40→16:14)
[2021-08-19 16:00] VITALS: BP 131/81
[2021-08-19 17:13] VITALS: BP 131/81
[2021-08-20 02:44] VITALS: BP 127/74
[2021-08-20] MEDS: IBUPROFEN 400 MG TABLET PO PRN (02:44)
[2021-08-20] MEDS: LEVOTHYROXINE SODIUM 50 MCG TABLET PO SCH (06:16)
[2021-08-20] MEDS: QUEtiapine FUMARATE 200 MG TABLET PO SCH ×2 (08:40→20:12)
[2021-08-20] MEDS: CHOLECALCIFEROL (VIT D3) 1,000 UNITS [25 MCG] TABLET PO SCH (08:41)
[2021-08-20] MEDS: LOSARTAN POTASSIUM 50 MG TABLET PO SCH (08:41)
[2021-08-20] MEDS: AmLODIPine BESYLATE 5 MG TABLET PO SCH (08:41)
[2021-08-20] MEDS: BuPROPion HCL 150 MG SR TABLET PO SCH (08:42)
[2021-08-20] MEDS: CIPROFLOXACIN HCL 500 MG TABLET PO SCH ×2 (08:42→16:10)
[2021-08-20 09:38] VITALS: BP 154/95
[2021-08-20 16:00] VITALS: BP 138/88
[2021-08-20] MEDS: ZOLPIDEM TARTRATE 10 MG TABLET PO PRN (20:57)
[2021-08-21 04:24] VITALS: BP 109/73
[2021-08-21] MEDS: LEVOTHYROXINE SODIUM 50 MCG TABLET PO SCH (06:30)
[2021-08-21] MEDS: CIPROFLOXACIN HCL 500 MG TABLET PO SCH ×2 (08:19→16:50)
[2021-08-21] MEDS: QUEtiapine FUMARATE 200 MG TABLET PO SCH ×2 (08:19→20:22)
[2021-08-21] MEDS: CHOLECALCIFEROL (VIT D3) 1,000 UNITS [25 MCG] TABLET PO SCH (08:20)
[2021-08-21] MEDS: BuPROPion HCL 150 MG SR TABLET PO SCH (08:20)
[2021-08-21] MEDS: AmLODIPine BESYLATE 5 MG TABLET PO SCH (08:20)
[2021-08-21] MEDS: LOSARTAN POTASSIUM 50 MG TABLET PO SCH (08:20)
[2021-08-21 08:51] VITALS: BP 168/105
[2021-08-21 16:53] VITALS: BP 128/85
[2021-08-21] MEDS: HALOPERIDOL 5 MG TABLET PO PRN (17:35)
[2021-08-21] MEDS: ZOLPIDEM TARTRATE 10 MG TABLET PO PRN (20:50)
[2021-08-22] MEDS: LEVOTHYROXINE SODIUM 50 MCG TABLET PO SCH (06:44)
[2021-08-22 08:30] VITALS: BP 157/100
[2021-08-22] MEDS: LOSARTAN POTASSIUM 50 MG TABLET PO SCH (08:42)
[2021-08-22] MEDS: CIPROFLOXACIN HCL 500 MG TABLET PO SCH ×2 (08:42→17:06)
[2021-08-22] MEDS: BuPROPion HCL 150 MG SR TABLET PO SCH (08:45)
[2021-08-22] MEDS: AmLODIPine BESYLATE 5 MG TABLET PO SCH (08:45)
[2021-08-22] MEDS: CHOLECALCIFEROL (VIT D3) 1,000 UNITS [25 MCG] TABLET PO SCH (08:45)
[2021-08-22] MEDS: QUEtiapine FUMARATE 200 MG TABLET PO SCH ×2 (08:45→20:00)
[2021-08-22 16:21] VITALS: BP 121/79
[2021-08-22] MEDS: ZOLPIDEM TARTRATE 10 MG TABLET PO PRN (20:23)
[2021-08-23] MEDS: LEVOTHYROXINE SODIUM 50 MCG TABLET PO SCH (06:20)
[2021-08-23] MEDS: BuPROPion HCL 150 MG SR TABLET PO SCH (08:29)
[2021-08-23] MEDS: CHOLECALCIFEROL (VIT D3) 1,000 UNITS [25 MCG] TABLET PO SCH (08:29)
[2021-08-23] MEDS: QUEtiapine FUMARATE 200 MG TABLET PO SCH ×2 (08:29→20:23)
[2021-08-23] MEDS: LOSARTAN POTASSIUM 50 MG TABLET PO SCH (08:29)
[2021-08-23] MEDS: CIPROFLOXACIN HCL 500 MG TABLET PO SCH (08:29)
[2021-08-23] MEDS: AmLODIPine BESYLATE 5 MG TABLET PO SCH (08:30)
[2021-08-23 08:59] VITALS: BP 155/96
[2021-08-23 09:58] LABS: COVID AG,FIA SOURCE NASAL SWAB
[2021-08-23 16:25] VITALS: BP 130/85
[2021-08-23] MEDS: ZOLPIDEM TARTRATE 10 MG TABLET PO PRN (21:09)
[2021-08-24] MEDS: LEVOTHYROXINE SODIUM 50 MCG TABLET PO SCH (06:58)
[2021-08-24 08:00] VITALS: BP 136/84
[2021-08-24] MEDS: AmLODIPine BESYLATE 5 MG TABLET PO SCH (08:52)
[2021-08-24] MEDS: BuPROPion HCL 150 MG SR TABLET PO SCH (08:52)
[2021-08-24] MEDS: CHOLECALCIFEROL (VIT D3) 1,000 UNITS [25 MCG] TABLET PO SCH (08:52)
[2021-08-24] MEDS: LOSARTAN POTASSIUM 50 MG TABLET PO SCH (08:52)
[2021-08-24] MEDS: QUEtiapine FUMARATE 200 MG TABLET PO SCH ×2 (08:52→20:24)
[2021-08-24 16:00] VITALS: BP 133/83
[2021-08-24] MEDS: ZOLPIDEM TARTRATE 10 MG TABLET PO PRN (21:10)
[2021-08-25 02:20] VITALS: BP 111/66
[2021-08-25] MEDS: LORazepam 2 MG TABLET PO PRN (02:27)
[2021-08-25] MEDS: LEVOTHYROXINE SODIUM 50 MCG TABLET PO SCH (06:24)
[2021-08-25 08:00] VITALS: BP 153/72
[2021-08-25] MEDS: AmLODIPine BESYLATE 5 MG TABLET PO SCH (09:43)
[2021-08-25] MEDS: QUEtiapine FUMARATE 200 MG TABLET PO SCH ×2 (09:43→20:02)
[2021-08-25] MEDS: CHOLECALCIFEROL (VIT D3) 1,000 UNITS [25 MCG] TABLET PO SCH (09:44)
[2021-08-25] MEDS: BuPROPion HCL 150 MG SR TABLET PO SCH (09:44)
[2021-08-25] MEDS: LOSARTAN POTASSIUM 50 MG TABLET PO SCH (09:46)
[2021-08-25 16:44] VITALS: BP 103/60
[2021-08-26] MEDS: LEVOTHYROXINE SODIUM 50 MCG TABLET PO SCH (06:18)
[2021-08-26] MEDS: LOSARTAN POTASSIUM 50 MG TABLET PO SCH (08:08)
[2021-08-26] MEDS: BuPROPion HCL 150 MG SR TABLET PO SCH (08:08)
[2021-08-26] MEDS: CHOLECALCIFEROL (VIT D3) 1,000 UNITS [25 MCG] TABLET PO SCH (08:08)
[2021-08-26] MEDS: QUEtiapine FUMARATE 200 MG TABLET PO SCH ×2 (08:08→20:21)
[2021-08-26] MEDS: AmLODIPine BESYLATE 5 MG TABLET PO SCH (08:08)
[2021-08-26 08:43] VITALS: BP 123/71
[2021-08-26 16:31] VITALS: BP 101/69
[2021-08-26] MEDS: ZOLPIDEM TARTRATE 10 MG TABLET PO PRN (23:47)
[2021-08-27] MEDS: LEVOTHYROXINE SODIUM 50 MCG TABLET PO SCH (06:47)
[2021-08-27] MEDS: LOSARTAN POTASSIUM 50 MG TABLET PO SCH (08:57)
[2021-08-27] MEDS: CHOLECALCIFEROL (VIT D3) 1,000 UNITS [25 MCG] TABLET PO SCH (08:57)
[2021-08-27] MEDS: QUEtiapine FUMARATE 200 MG TABLET PO SCH ×2 (08:57→20:05)
[2021-08-27] MEDS: AmLODIPine BESYLATE 5 MG TABLET PO SCH (08:57)
[2021-08-27] MEDS: BuPROPion HCL 150 MG SR TABLET PO SCH (08:57)
[2021-08-27 08:58] VITALS: BP 135/80
[2021-08-27] MEDS: IBUPROFEN 400 MG TABLET PO PRN (15:02)
[2021-08-27 15:04] VITALS: BP 136/79
[2021-08-27 16:14] VITALS: BP 108/79
[2021-08-27] MEDS: ZOLPIDEM TARTRATE 10 MG TABLET PO PRN (20:47)
[2021-08-28] MEDS: LEVOTHYROXINE SODIUM 50 MCG TABLET PO SCH (06:20)
[2021-08-28 08:30] VITALS: BP 105/68
[2021-08-28] MEDS: QUEtiapine FUMARATE 200 MG TABLET PO SCH (08:30)
[2021-08-28] MEDS: LOSARTAN POTASSIUM 50 MG TABLET PO SCH ×2 (08:31→08:33)
[2021-08-28] MEDS: BuPROPion HCL 150 MG SR TABLET PO SCH ×2 (08:31→16:24)
[2021-08-28] MEDS: CHOLECALCIFEROL (VIT D3) 1,000 UNITS [25 MCG] TABLET PO SCH (08:31)
[2021-08-28] MEDS: AmLODIPine BESYLATE 5 MG TABLET PO SCH (08:33)
[2021-08-28] MEDS: LORazepam 2 MG TABLET PO PRN (09:49)
[2021-08-28 16:15] VITALS: BP 109/70
[2021-08-28] MEDS: QUEtiapine FUMARATE 300 MG TABLET PO SCH (20:08)
[2021-08-29] MEDS: LEVOTHYROXINE SODIUM 50 MCG TABLET PO SCH (06:23)
[2021-08-29] MEDS: CHOLECALCIFEROL (VIT D3) 1,000 UNITS [25 MCG] TABLET PO SCH (08:47)
[2021-08-29] MEDS: QUEtiapine FUMARATE 300 MG TABLET PO SCH ×2 (08:47→20:06)
[2021-08-29] MEDS: AmLODIPine BESYLATE 5 MG TABLET PO SCH (08:48)
[2021-08-29] MEDS: BuPROPion HCL 150 MG SR TABLET PO SCH ×2 (08:48→16:14)
[2021-08-29] MEDS: LOSARTAN POTASSIUM 50 MG TABLET PO SCH (08:49)
[2021-08-29 09:00] VITALS: BP 110/83
[2021-08-29 16:18] VITALS: BP 123/84
[2021-08-29] MEDS: ZOLPIDEM TARTRATE 10 MG TABLET PO PRN (20:17)
[2021-08-30] MEDS: LEVOTHYROXINE SODIUM 50 MCG TABLET PO SCH (06:53)
[2021-08-30] MEDS: AmLODIPine BESYLATE 5 MG TABLET PO SCH (08:23)
[2021-08-30] MEDS: QUEtiapine FUMARATE 300 MG TABLET PO SCH ×2 (08:23→20:00)
[2021-08-30] MEDS: CHOLECALCIFEROL (VIT D3) 1,000 UNITS [25 MCG] TABLET PO SCH (08:24)
[2021-08-30 08:30] VITALS: BP 145/93
[2021-08-30] MEDS: BuPROPion HCL 150 MG SR TABLET PO SCH ×2 (09:35→16:30)
[2021-08-30] MEDS: LOSARTAN POTASSIUM 50 MG TABLET PO SCH (09:35)
[2021-08-30 15:05] LABS: COVID AG,FIA SOURCE NASOPHARYNGEAL
[2021-08-30 16:06] VITALS: BP 125/85
[2021-08-30] MEDS: HALOPERIDOL 5 MG TABLET PO PRN (17:25)
[2021-08-30] MEDS: ZOLPIDEM TARTRATE 10 MG TABLET PO PRN (20:20)
[2021-08-31] MEDS: LEVOTHYROXINE SODIUM 50 MCG TABLET PO SCH (06:33)
[2021-08-31 08:17] VITALS: BP 148/94
[2021-08-31] MEDS: CHOLECALCIFEROL (VIT D3) 1,000 UNITS [25 MCG] TABLET PO SCH (09:06)
[2021-08-31] MEDS: QUEtiapine FUMARATE 300 MG TABLET PO SCH ×2 (09:06→20:15)
[2021-08-31] MEDS: AmLODIPine BESYLATE 5 MG TABLET PO SCH (09:07)
[2021-08-31] MEDS: BuPROPion HCL 150 MG SR TABLET PO SCH ×2 (09:07→16:43)
[2021-08-31] MEDS: LOSARTAN POTASSIUM 50 MG TABLET PO SCH (09:07)
[2021-08-31 16:10] VITALS: BP 113/66
[2021-08-31] MEDS: ZOLPIDEM TARTRATE 10 MG TABLET PO PRN (21:20)
[2021-09-01] MEDS: LEVOTHYROXINE SODIUM 50 MCG TABLET PO SCH (06:47)
[2021-09-01] MEDS: CHOLECALCIFEROL (VIT D3) 1,000 UNITS [25 MCG] TABLET PO SCH (08:26)
[2021-09-01] MEDS: LOSARTAN POTASSIUM 50 MG TABLET PO SCH (08:26)
[2021-09-01] MEDS: BuPROPion HCL 150 MG SR TABLET PO SCH ×2 (08:26→16:26)
[2021-09-01] MEDS: AmLODIPine BESYLATE 5 MG TABLET PO SCH (08:27)
[2021-09-01] MEDS: QUEtiapine FUMARATE 300 MG TABLET PO SCH ×2 (08:27→20:34)
[2021-09-01 08:30] VITALS: BP 144/103
[2021-09-01 16:27] VITALS: BP 114/73
[2021-09-01] MEDS: ZOLPIDEM TARTRATE 10 MG TABLET PO PRN (20:34)
[2021-09-02] MEDS: LEVOTHYROXINE SODIUM 50 MCG TABLET PO SCH (06:36)
[2021-09-02] MEDS: BuPROPion HCL 150 MG SR TABLET PO SCH ×2 (08:52→16:11)
[2021-09-02] MEDS: CHOLECALCIFEROL (VIT D3) 1,000 UNITS [25 MCG] TABLET PO SCH (08:52)
[2021-09-02] MEDS: QUEtiapine FUMARATE 300 MG TABLET PO SCH ×2 (08:52→20:24)
[2021-09-02] MEDS: LOSARTAN POTASSIUM 50 MG TABLET PO SCH (08:53)
[2021-09-02] MEDS: AmLODIPine BESYLATE 5 MG TABLET PO SCH (08:53)
[2021-09-02 10:20] VITALS: BP 157/77
[2021-09-02 16:00] VITALS: BP 130/80
[2021-09-02] MEDS: ZOLPIDEM TARTRATE 10 MG TABLET PO PRN (20:36)
[2021-09-03] MEDS: LEVOTHYROXINE SODIUM 50 MCG TABLET PO SCH (06:43)
[2021-09-03] MEDS: BuPROPion HCL 150 MG SR TABLET PO SCH ×2 (08:21→16:22)
[2021-09-03] MEDS: LOSARTAN POTASSIUM 50 MG TABLET PO SCH (08:22)
[2021-09-03] MEDS: CHOLECALCIFEROL (VIT D3) 1,000 UNITS [25 MCG] TABLET PO SCH (08:22)
[2021-09-03] MEDS: QUEtiapine FUMARATE 300 MG TABLET PO SCH ×2 (08:22→20:26)
[2021-09-03] MEDS: AmLODIPine BESYLATE 5 MG TABLET PO SCH (08:22)
[2021-09-03 08:50] VITALS: BP 163/90
[2021-09-03 16:00] VITALS: BP 102/68
[2021-09-03] MEDS: MAG HYDROX/AL HYDROX/SIMETH ES 30 ML SUSPENSION UDCUP PO PRN (17:01)
[2021-09-03] MEDS: LORazepam 2 MG TABLET PO PRN (19:19)
[2021-09-04] MEDS: LEVOTHYROXINE SODIUM 50 MCG TABLET PO SCH (06:45)
[2021-09-04] MEDS: CHOLECALCIFEROL (VIT D3) 1,000 UNITS [25 MCG] TABLET PO SCH (08:11)
[2021-09-04] MEDS: LOSARTAN POTASSIUM 50 MG TABLET PO SCH (08:11)
[2021-09-04] MEDS: AmLODIPine BESYLATE 5 MG TABLET PO SCH (08:11)
[2021-09-04] MEDS: QUEtiapine FUMARATE 300 MG TABLET PO SCH ×2 (08:11→20:04)
[2021-09-04] MEDS: BuPROPion HCL 150 MG SR TABLET PO SCH ×2 (08:11→17:26)
[2021-09-04 08:30] VITALS: BP 137/77
[2021-09-04 16:00] VITALS: BP 110/74
[2021-09-04] MEDS: ZOLPIDEM TARTRATE 10 MG TABLET PO PRN (21:18)
[2021-09-05] MEDS: LEVOTHYROXINE SODIUM 50 MCG TABLET PO SCH (06:26)
[2021-09-05 08:30] VITALS: BP 160/89
[2021-09-05] MEDS: LOSARTAN POTASSIUM 50 MG TABLET PO SCH (08:31)
[2021-09-05] MEDS: CHOLECALCIFEROL (VIT D3) 1,000 UNITS [25 MCG] TABLET PO SCH (08:31)
[2021-09-05] MEDS: QUEtiapine FUMARATE 300 MG TABLET PO SCH ×2 (08:31→20:11)
[2021-09-05] MEDS: AmLODIPine BESYLATE 5 MG TABLET PO SCH (08:31)
[2021-09-05] MEDS: BuPROPion HCL 150 MG SR TABLET PO SCH ×2 (08:31→16:10)
[2021-09-05 16:22] VITALS: BP 110/73
[2021-09-05 16:23] VITALS: BP 110/73
[2021-09-06 01:35] VITALS: BP 122/80
[2021-09-06] MEDS: ZOLPIDEM TARTRATE 10 MG TABLET PO PRN (01:40)
[2021-09-06] MEDS: LEVOTHYROXINE SODIUM 50 MCG TABLET PO SCH (06:19)
[2021-09-06 08:30] VITALS: BP 122/79
[2021-09-06] MEDS: AmLODIPine BESYLATE 5 MG TABLET PO SCH (08:46)
[2021-09-06] MEDS: BuPROPion HCL 150 MG SR TABLET PO SCH ×2 (08:46→16:14)
[2021-09-06] MEDS: CHOLECALCIFEROL (VIT D3) 1,000 UNITS [25 MCG] TABLET PO SCH (08:46)
[2021-09-06] MEDS: LOSARTAN POTASSIUM 50 MG TABLET PO SCH (08:46)
[2021-09-06] MEDS: QUEtiapine FUMARATE 300 MG TABLET PO SCH ×2 (08:46→20:34)
[2021-09-06 15:57] LABS: COVID AG,FIA SOURCE NASAL SWAB
[2021-09-06 16:35] VITALS: BP 127/84
[2021-09-07] MEDS: LEVOTHYROXINE SODIUM 50 MCG TABLET PO SCH (06:31)
[2021-09-07] MEDS: CHOLECALCIFEROL (VIT D3) 1,000 UNITS [25 MCG] TABLET PO SCH (08:17)
[2021-09-07] MEDS: BuPROPion HCL 150 MG SR TABLET PO SCH ×2 (08:17→16:10)
[2021-09-07] MEDS: AmLODIPine BESYLATE 5 MG TABLET PO SCH (08:18)
[2021-09-07] MEDS: LOSARTAN POTASSIUM 50 MG TABLET PO SCH (08:18)
[2021-09-07] MEDS: QUEtiapine FUMARATE 300 MG TABLET PO SCH ×2 (08:18→20:18)
[2021-09-07 09:46] VITALS: BP 139/80
[2021-09-07 16:23] VITALS: BP 110/69
[2021-09-08] MEDS: LEVOTHYROXINE SODIUM 50 MCG TABLET PO SCH (06:25)
[2021-09-08] MEDS: BuPROPion HCL 150 MG SR TABLET PO SCH ×2 (08:45→16:23)
[2021-09-08] MEDS: LOSARTAN POTASSIUM 50 MG TABLET PO SCH (08:45)
[2021-09-08] MEDS: QUEtiapine FUMARATE 300 MG TABLET PO SCH ×2 (08:45→20:18)
[2021-09-08] MEDS: AmLODIPine BESYLATE 5 MG TABLET PO SCH (08:46)
[2021-09-08] MEDS: CHOLECALCIFEROL (VIT D3) 1,000 UNITS [25 MCG] TABLET PO SCH (08:46)
[2021-09-08] MEDS: IBUPROFEN 400 MG TABLET PO PRN (09:13)
[2021-09-08 09:14] VITALS: BP 106/61
[2021-09-08 10:15] VITALS: BP 106/55
[2021-09-08 13:51] VITALS: BP 111/78
[2021-09-08 16:22] VITALS: BP 129/77
[2021-09-09] MEDS: LEVOTHYROXINE SODIUM 50 MCG TABLET PO SCH (06:35)
[2021-09-09 08:06] VITALS: BP 138/82
[2021-09-09] MEDS: AmLODIPine BESYLATE 5 MG TABLET PO SCH (08:38)
[2021-09-09] MEDS: BuPROPion HCL 150 MG SR TABLET PO SCH ×2 (08:38→16:04)
[2021-09-09] MEDS: CHOLECALCIFEROL (VIT D3) 1,000 UNITS [25 MCG] TABLET PO SCH (08:38)
[2021-09-09] MEDS: LOSARTAN POTASSIUM 50 MG TABLET PO SCH (08:38)
[2021-09-09] MEDS: QUEtiapine FUMARATE 300 MG TABLET PO SCH ×2 (08:38→20:06)
[2021-09-09 16:00] VITALS: BP 132/70
[2021-09-10] MEDS: LEVOTHYROXINE SODIUM 50 MCG TABLET PO SCH (06:23)
[2021-09-10 08:30] VITALS: BP 146/92
[2021-09-10] MEDS: AmLODIPine BESYLATE 5 MG TABLET PO SCH (08:54)
[2021-09-10] MEDS: QUEtiapine FUMARATE 300 MG TABLET PO SCH ×2 (08:54→20:19)
[2021-09-10] MEDS: BuPROPion HCL 150 MG SR TABLET PO SCH ×2 (08:54→16:16)
[2021-09-10] MEDS: LOSARTAN POTASSIUM 50 MG TABLET PO SCH (08:54)
[2021-09-10] MEDS: CHOLECALCIFEROL (VIT D3) 1,000 UNITS [25 MCG] TABLET PO SCH (08:54)
[2021-09-10 16:16] VITALS: BP 114/74
[2021-09-11] MEDS: LEVOTHYROXINE SODIUM 50 MCG TABLET PO SCH (06:34)
[2021-09-11] MEDS: BuPROPion HCL 150 MG SR TABLET PO SCH ×2 (08:11→16:06)
[2021-09-11] MEDS: QUEtiapine FUMARATE 300 MG TABLET PO SCH ×2 (08:12→20:12)
[2021-09-11] MEDS: CHOLECALCIFEROL (VIT D3) 1,000 UNITS [25 MCG] TABLET PO SCH (08:12)
[2021-09-11] MEDS: AmLODIPine BESYLATE 5 MG TABLET PO SCH (08:12)
[2021-09-11] MEDS: LOSARTAN POTASSIUM 50 MG TABLET PO SCH (08:12)
[2021-09-11 09:21] VITALS: BP 142/95
[2021-09-11 16:26] VITALS: BP 131/80
[2021-09-12] MEDS: LEVOTHYROXINE SODIUM 50 MCG TABLET PO SCH (06:45)
[2021-09-12] MEDS: BuPROPion HCL 150 MG SR TABLET PO SCH ×2 (08:27→16:10)
[2021-09-12] MEDS: CHOLECALCIFEROL (VIT D3) 1,000 UNITS [25 MCG] TABLET PO SCH (08:28)
[2021-09-12] MEDS: LOSARTAN POTASSIUM 50 MG TABLET PO SCH (08:28)
[2021-09-12] MEDS: AmLODIPine BESYLATE 5 MG TABLET PO SCH (08:28)
[2021-09-12] MEDS: QUEtiapine FUMARATE 300 MG TABLET PO SCH ×2 (08:28→20:18)
[2021-09-12 09:52] VITALS: BP 150/95
[2021-09-12 16:18] VITALS: BP 132/83
[2021-09-13] MEDS: LEVOTHYROXINE SODIUM 50 MCG TABLET PO SCH (06:42)
[2021-09-13 08:30] VITALS: BP 131/77
[2021-09-13] MEDS: CHOLECALCIFEROL (VIT D3) 1,000 UNITS [25 MCG] TABLET PO SCH (08:49)
[2021-09-13] MEDS: AmLODIPine BESYLATE 5 MG TABLET PO SCH (08:49)
[2021-09-13] MEDS: LOSARTAN POTASSIUM 50 MG TABLET PO SCH (08:49)
[2021-09-13] MEDS: QUEtiapine FUMARATE 300 MG TABLET PO SCH ×2 (08:49→20:16)
[2021-09-13] MEDS: BuPROPion HCL 150 MG SR TABLET PO SCH ×2 (08:49→16:38)
[2021-09-13 09:31] LABS: COVID AG,FIA SOURCE NASAL SWAB
[2021-09-13 16:00] VITALS: BP 115/76
[2021-09-14] MEDS: LEVOTHYROXINE SODIUM 50 MCG TABLET PO SCH (07:01)
[2021-09-14] MEDS: BuPROPion HCL 150 MG SR TABLET PO SCH ×2 (08:13→16:01)
[2021-09-14] MEDS: QUEtiapine FUMARATE 300 MG TABLET PO SCH ×2 (08:13→20:02)
[2021-09-14] MEDS: CHOLECALCIFEROL (VIT D3) 1,000 UNITS [25 MCG] TABLET PO SCH (08:13)
[2021-09-14] MEDS: LOSARTAN POTASSIUM 50 MG TABLET PO SCH (08:13)
[2021-09-14] MEDS: AmLODIPine BESYLATE 5 MG TABLET PO SCH (08:13)
[2021-09-14 09:23] VITALS: BP 114/68
[2021-09-14 16:00] VITALS: BP 124/76
[2021-09-15] MEDS: LEVOTHYROXINE SODIUM 50 MCG TABLET PO SCH (06:41)
[2021-09-15] MEDS: QUEtiapine FUMARATE 300 MG TABLET PO SCH ×2 (08:10→20:20)
[2021-09-15] MEDS: CHOLECALCIFEROL (VIT D3) 1,000 UNITS [25 MCG] TABLET PO SCH (08:10)
[2021-09-15] MEDS: LOSARTAN POTASSIUM 50 MG TABLET PO SCH (08:10)
[2021-09-15] MEDS: AmLODIPine BESYLATE 5 MG TABLET PO SCH (08:10)
[2021-09-15] MEDS: BuPROPion HCL 150 MG SR TABLET PO SCH ×2 (08:10→16:38)
[2021-09-15 09:07] VITALS: BP 131/81
[2021-09-15 16:30] VITALS: BP 121/79
[2021-09-15] MEDS: MAG HYDROX/AL HYDROX/SIMETH ES 30 ML SUSPENSION UDCUP PO PRN (19:25)
[2021-09-16] MEDS: LEVOTHYROXINE SODIUM 50 MCG TABLET PO SCH (06:48)
[2021-09-16] MEDS: BuPROPion HCL 150 MG SR TABLET PO SCH ×2 (08:25→15:58)
[2021-09-16] MEDS: LOSARTAN POTASSIUM 50 MG TABLET PO SCH (08:25)
[2021-09-16] MEDS: AmLODIPine BESYLATE 5 MG TABLET PO SCH (08:27)
[2021-09-16] MEDS: CHOLECALCIFEROL (VIT D3) 1,000 UNITS [25 MCG] TABLET PO SCH (08:27)
[2021-09-16] MEDS: QUEtiapine FUMARATE 300 MG TABLET PO SCH ×2 (08:41→20:10)
[2021-09-16 08:51] VITALS: BP 120/73
[2021-09-16 16:00] VITALS: BP 131/79
[2021-09-16] MEDS: IBUPROFEN 400 MG TABLET PO PRN (20:10)
[2021-09-16 20:11] VITALS: BP 129/69
[2021-09-16] MEDS: ZOLPIDEM TARTRATE 10 MG TABLET PO PRN (22:56)
[2021-09-17] MEDS: LEVOTHYROXINE SODIUM 50 MCG TABLET PO SCH (06:15)
[2021-09-17] MEDS: AmLODIPine BESYLATE 5 MG TABLET PO SCH (08:00)
[2021-09-17] MEDS: LOSARTAN POTASSIUM 50 MG TABLET PO SCH (08:01)
[2021-09-17] MEDS: BuPROPion HCL 150 MG SR TABLET PO SCH ×2 (08:01→16:06)
[2021-09-17] MEDS: CHOLECALCIFEROL (VIT D3) 1,000 UNITS [25 MCG] TABLET PO SCH (08:01)
[2021-09-17] MEDS: QUEtiapine FUMARATE 300 MG TABLET PO SCH ×2 (08:01→20:05)
[2021-09-17 09:51] VITALS: BP 140/88
[2021-09-17 16:00] VITALS: BP 121/77
[2021-09-17 16:44] VITALS: BP 132/78
[2021-09-17] MEDS: IBUPROFEN 400 MG TABLET PO PRN (16:44)
[2021-09-17 17:44] VITALS: BP 127/75
[2021-09-17] MEDS: ZOLPIDEM TARTRATE 10 MG TABLET PO PRN (21:50)
[2021-09-18] MEDS: LEVOTHYROXINE SODIUM 50 MCG TABLET PO SCH (06:17)
[2021-09-18 08:54] VITALS: BP 150/98
[2021-09-18] MEDS: LOSARTAN POTASSIUM 50 MG TABLET PO SCH (08:58)
[2021-09-18] MEDS: AmLODIPine BESYLATE 5 MG TABLET PO SCH (08:58)
[2021-09-18] MEDS: QUEtiapine FUMARATE 300 MG TABLET PO SCH ×2 (08:58→20:05)
[2021-09-18] MEDS: BuPROPion HCL 150 MG SR TABLET PO SCH ×2 (08:58→16:15)
[2021-09-18] MEDS: CHOLECALCIFEROL (VIT D3) 1,000 UNITS [25 MCG] TABLET PO SCH (08:58)
[2021-09-18 16:17] VITALS: BP 124/69
[2021-09-18] MEDS: ZOLPIDEM TARTRATE 10 MG TABLET PO PRN (21:57)
[2021-09-19 04:44] VITALS: BP 136/82
[2021-09-19] MEDS: LEVOTHYROXINE SODIUM 50 MCG TABLET PO SCH (06:48)
[2021-09-19] MEDS: LOSARTAN POTASSIUM 50 MG TABLET PO SCH (08:41)
[2021-09-19] MEDS: BuPROPion HCL 150 MG SR TABLET PO SCH (08:41)
[2021-09-19] MEDS: QUEtiapine FUMARATE 300 MG TABLET PO SCH (08:41)
[2021-09-19] MEDS: AmLODIPine BESYLATE 5 MG TABLET PO SCH (08:41)
[2021-09-19] MEDS: CHOLECALCIFEROL (VIT D3) 1,000 UNITS [25 MCG] TABLET PO SCH (08:41)
[2021-09-19 12:00] VITALS: BP 138/77
[2021-09-19] MEDS ORDERED: LEVO50 PO (12:12)
[2021-09-19] MEDS ORDERED: LOSA-382 PO (12:12)
[2021-09-19] MEDS ORDERED: CHOL25TA4 PO (12:12)
[2021-09-19] MEDS ORDERED: AMLO-257 PO (12:12)
[2021-09-19] MEDS ORDERED: BUPR-290 PO (12:29)
[2021-09-19] MEDS ORDERED: QUET300T2 PO (12:29)
== END 2021-09-19 12:40 | disposition home or self-care (01) | DRG 750 ==
LOC: EMS 15:28 → 3EI 17:24
PROVIDERS: ADMIT Psychiatry & Neurology Child & Adolescent Psychiatry; ATTEND Psychiatry & Neurology Child & Adolescent Psychiatry
DX: F25.1 Schizoaffective disorder, depressive type (principal); E11.9 Type 2 diabetes mellitus without complications; R45.851 Suicidal ideations; B19.20 Unspecified viral hepatitis C without hepatic coma; E03.9 Hypothyroidism, unspecified; F15.10 Other stimulant abuse, uncomplicated; E55.9 Vitamin D deficiency, unspecified; F41.9 Anxiety disorder, unspecified; Z20.822 Contact with and (suspected) exposure to COVID-19; I10 Essential (primary) hypertension; N39.0 Urinary tract infection, site not specified; F32.A Depression, unspecified; F17.210 Nicotine dependence, cigarettes, uncomplicated; Z71.41 Alcohol abuse counseling and surveillance of alcoholic; Z59.00 Homelessness unspecified; Z79.84 Long term (current) use of oral hypoglycemic drugs
CPT/HCPCS: 80053; 81001; 83036; 84443; 84550; 84702; 85025; 87081; 87086; 99285; G0480

== ENCOUNTER 2022-03-31 10:57 | Emergency (ER) | payer MEDICAID, OTHER ==
[~2022-03-31] VITALS: Ht 149.9 cm; Wt 64.5 kg
[~2022-03-31 10:57] MED LIST changes: -BUPR-290 PO; +BUPR-72 PO; -CHOL200074 PO; +CHOL25TA4 PO; -QUET200T PO; -QUET200T30 PO; +QUET300T2 PO
[2022-03-31] MEDS ORDERED: SODIUM CHLORIDE 0.9% 1,000 ML IV ONE (14:00)
[2022-03-31] MEDS ORDERED: KETOROLAC TROMETHAMINE 30 MG/ML VIAL IVP ONE (14:00)
[2022-03-31] MEDS ORDERED: LOPERAMIDE HCL 2 MG CAPSULE PO ONE (14:00)
[2022-03-31 14:45] LABS: BASOPHILS % (AUTO) 0.5 % (0.0-2.0); EOSINOPHILS % (AUTO) 0.5 % (1.0-6.0); HEMATOCRIT 43.3 % (36-46); HEMOGLOBIN 14.7 g/dL (12.0-16.0); LYMPHOCYTES # (AUTO) 1.3 K/uL (1.0-4.8); LYMPHOCYTES % (AUTO) 14.6 % (22.0-44.0); MEAN CORPUSCULAR HEMOGLOBIN 28.8 pg (26.0-34.0); MEAN CORPUSCULAR HGB CONC 33.9 G/dL (31.0-37.0); MEAN CORPUSCULAR VOLUME 85 fL (80-100); MONOCYTES # (AUTO) 0.7 K/uL (0.1-1.0); MONOCYTES % (AUTO) 7.4 % (2.0-9.0); PLATELET COUNT (AUTO) 254 K/uL (150-450)
[2022-03-31 14:49] LABS: ANION GAP 9 mmol/L (8-16); CALCIUM, TOTAL 9.4 mg/dL (8.8-10.5); CARBON DIOXIDE 24 mmol/L (22-29); CHLORIDE 103 mmol/L (98-107); CREATININE 0.87 mg/dL (0.60-1.30); GLUCOSE,RANDOM 109 mg/dL (70-110); POTASSIUM 3.1 mmol/L (3.5-5.1); SODIUM SERUM 136 mmol/L (136-145); UREA NITROGEN, BLOOD 14 mg/dL (7-18)
[2022-03-31 14:54] LABS: ALANINE AMINOTRANSFERASE 38 U/L (12-78); ALBUMIN 3.5 g/dL (3.4-5.0); ALKALINE PHOSPHATASE 70 U/L (46-116); ASPARTATE AMINOTRANSFERASE 23 U/L (15-37); BILIRUBIN,TOTAL 0.7 mg/dL (0.1-1.0); LIPASE 85 U/L (73-393); TOTAL PROTEIN, SERUM 7.8 g/dL (6.4-8.2)
[2022-03-31 14:58] LABS: GLOMERULAR FILTR. RATE CALC > 60 mL/min (>60)
[2022-03-31] MEDS ORDERED: LOPE-232 PO (15:22)
[2022-03-31] MEDS ORDERED: POTASSIUM CHLORIDE 20 MEQ ER TABLET PO ONE (15:30)
[2022-03-31 16:09] VITALS: BP 140/80
[2022-04-01] MEDS ORDERED: AMLO10TA55 PO (15:27)
== END 2022-03-31 16:09 | disposition home or self-care (01) ==
LOC: EMS 11:10
DX: R10.84 Generalized abdominal pain (principal); K52.1 Toxic gastroenteritis and colitis; E87.6 Hypokalemia; F32.A Depression, unspecified; I10 Essential (primary) hypertension; F20.9 Schizophrenia, unspecified; F17.210 Nicotine dependence, cigarettes, uncomplicated; F15.90 Other stimulant use, unspecified, uncomplicated; Z98.890 Other specified postprocedural states
CPT/HCPCS: 99283; 96374; 96361; 80053; 83690; 85025; 36415; J1885; J7030

== ENCOUNTER 2022-04-01 09:32 | Emergency (ER) | payer OTHER ==
[~2022-04-01] VITALS: Ht 157.5 cm; Wt 61.4 kg
[~2022-04-01 09:32] MED LIST changes: +LOPE-232 PO
[2022-04-01] MEDS ORDERED: SODIUM CHLORIDE 0.9% 1,000 ML IV ONE (09:45)
[2022-04-01 10:03] LABS: COVID AG,FIA SOURCE NASAL SWAB
[2022-04-01 10:03] LABS: BASOPHILS % (AUTO) 0.5 % (0.0-2.0); EOSINOPHILS % (AUTO) 1.4 % (1.0-6.0); HEMATOCRIT 44.1 % (36-46); HEMOGLOBIN 14.8 g/dL (12.0-16.0); LYMPHOCYTES # (AUTO) 1.2 K/uL (1.0-4.8); LYMPHOCYTES % (AUTO) 15.6 % (22.0-44.0); MEAN CORPUSCULAR HEMOGLOBIN 28.9 pg (26.0-34.0); MEAN CORPUSCULAR HGB CONC 33.7 G/dL (31.0-37.0); MEAN CORPUSCULAR VOLUME 86 fL (80-100); MONOCYTES # (AUTO) 0.6 K/uL (0.1-1.0); MONOCYTES % (AUTO) 8.4 % (2.0-9.0); NEUTROPHILS # (AUTO) 5.5 K/uL (1.8-7.7); NEUTROPHILS % (AUTO) 74.1 % (40.0-70.0); PLATELET COUNT (AUTO) 232 K/uL (150-450); RED BLOOD CELL COUNT(AUTO) 5.14 MIL/uL (4.00-5.20); RED CELL DISTRIBUTION WIDTH 14.1 % (11.5-14.5)
[2022-04-01 10:15] LABS: ANION GAP 8 mmol/L (8-16); CALCIUM, TOTAL 9.2 mg/dL (8.8-10.5); CARBON DIOXIDE 25 mmol/L (22-29); CHLORIDE 107 mmol/L (98-107); CREATININE 0.72 mg/dL (0.60-1.30); GLOMERULAR FILTR. RATE CALC > 60 mL/min (>60); GLUCOSE,RANDOM 113 mg/dL (70-110); POTASSIUM 3.8 mmol/L (3.5-5.1); SODIUM SERUM 140 mmol/L (136-145); UREA NITROGEN, BLOOD 11 mg/dL (7-18)
[2022-04-01 10:21] LABS: ALANINE AMINOTRANSFERASE 38 U/L (12-78); ALBUMIN 3.2 g/dL (3.4-5.0); ALKALINE PHOSPHATASE 71 U/L (46-116); ASPARTATE AMINOTRANSFERASE 27 U/L (15-37); BILIRUBIN,TOTAL 0.5 mg/dL (0.1-1.0); LIPASE 111 U/L (73-393); TOTAL PROTEIN, SERUM 7.5 g/dL (6.4-8.2)
[2022-04-01 10:26] LABS: INFLUENZA TYPE A NEGATIVE FOR TYPE A (NEGATIVE); INFLUENZA TYPE B NEGATIVE FOR TYPE B (NEGATIVE)
[2022-04-01 11:43] LABS: APPEARANCE,URINE HAZY (CLEAR); BILIRUBIN,URINE NEGATIVE (NEGATIVE); GLUCOSE, URINE (UA) NEGATIVE (NEGATIVE); KETONES,URINE 40-60 mg/dL (NEGATIVE); LEUKOCYTE ESTERASE ,URINE LARGE (NEGATIVE); NITRATE,URINE NEGATIVE (NEGATIVE); OCCULT BLOOD,URINE LARGE (NEGATIVE); PROTEIN,URINE 30-70 mg/dL (NEGATIVE); SPECIFIC GRAVITIY, URINE 1.027 (1.003-1.030); UROBILINOGEN,URINE <=1.0 mg/dL (<=1.0)
[2022-04-01] MEDS ORDERED: MAGNESIUM SULFATE 1 GM in DEXTROSE 5%-WATER 50 ML IV ONE (11:45)
[2022-04-01 12:08] LABS: RBC,URINE 0-2 /HPF (0-2)
[2022-04-01 12:09] LABS: BACTERIA,URINE Many /HPF (None Seen)
[2022-04-01 12:10] LABS: AMORPHOUS SEDIMENT,UR None Seen /LPF (None Seen); CALCIUM OXALATE CRYSTALS,UR None Seen /LPF (None Seen); CALCIUM PHOSPHATE CRYSTALS,UR None Seen /LPF (None Seen); OTHER CRYSTALS,URINE None Seen /LPF (None Seen); RENAL EPITHELIAL CELLS,URINE None Seen /LPF (None Seen); SQUAMOUS EPITHELIAL CELL,UR Rare /LPF (None Seen); TRANSITIONAL EPI CELLS,URINE None Seen /LPF (None Seen); TRIPLE PHOSPHATE CRYSTAL,UR None Seen /LPF (None Seen); URIC ACID CRYSTALS,URINE None Seen /LPF (None Seen); YEAST,URINE None Seen /HPF (None Seen)
[2022-04-01 12:11] LABS: COARSE GRANULAR CASTS,URINE None Seen /LPF (None Seen); FINE GRANULAR CASTS,URINE None Seen /LPF (None Seen); HYALINE CASTS, URINE None Seen /LPF (None Seen); MUCUS,URINE None Seen LPF (None Seen); OTHER CASTS, URINE None Seen /LPF (None Seen); STARCH,URINE None Seen /LPF (None Seen)
[2022-04-01 13:33] VITALS: BP 141/89
[2022-04-01] MEDS ORDERED: AMLO10TA55 PO (15:27)
== END 2022-04-01 15:24 | disposition home or self-care (01) ==
LOC: EMS 09:42
DX: R19.7 Diarrhea, unspecified (principal); F15.10 Other stimulant abuse, uncomplicated; I10 Essential (primary) hypertension; F32.9 Major depressive disorder, single episode, unspecified; F20.9 Schizophrenia, unspecified; F17.210 Nicotine dependence, cigarettes, uncomplicated; Z20.822 Contact with and (suspected) exposure to COVID-19; Z79.899 Other long term (current) drug therapy
CPT/HCPCS: 99284; 96365; 96361; 96366; 87426; 80053; 81001; 83690; 83735; 85025; 87804; 36415; 87086; 87186; J7060; J3475

== ENCOUNTER 2022-05-21 14:59 | Inpatient (IN) | payer MEDICAID ==
[~2022-05-21] VITALS: Ht 152.4 cm; Wt 58.1 kg
[~2022-05-21 14:59] MED LIST changes: -AMLO-257 PO; +AMLO10TA55 PO
[2022-05-21] MEDS ORDERED: INFLUENZA VIRUS VACCINE QVS 2022-23 (6MO+)/PF 60 MCG/0.5 ML SYRINGE IM. ONE (18:15)
[2022-05-21] MEDS ORDERED: HALOPERIDOL 5 MG TABLET PO PRN (18:15)
[2022-05-21] MEDS ORDERED: LORazepam 2 MG TABLET PO PRN (18:15)
[2022-05-21] MEDS ORDERED: -PHARMACY VACCINE NOTE- MISC ONE (18:15)
[2022-05-21 20:14] VITALS: BP 137/93
[2022-05-21] MEDS: ZOLPIDEM TARTRATE 10 MG TABLET PO PRN (21:05)
[2022-05-22] MEDS ORDERED: ACETAMINOPHEN 325 MG TABLET PO PRN (04:45)
[2022-05-22] MEDS ORDERED: BACITRACIN 28 GM OINTMENT TP PRN (04:45)
[2022-05-22] MEDS ORDERED: PETROLATUM,WHITE 28 GM JELLY TP PRN (04:45)
[2022-05-22] MEDS ORDERED: ALBUTEROL SULFATE HFA 90 MCG/PUFF 8 GM INHALER IH PRN (04:45)
[2022-05-22] MEDS ORDERED: DOCUSATE SODIUM 100 MG CAPSULE PO PRN (04:45)
[2022-05-22] MEDS ORDERED: IBUPROFEN 600 MG TABLET PO PRN (04:45)
[2022-05-22] MEDS ORDERED: CloNIDine HCL 0.1 MG TABLET PO PRN (04:45)
[2022-05-22] MEDS ORDERED: BENZOCAINE/MENTHOL LOZENGE PO PRN (04:45)
[2022-05-22] MEDS ORDERED: OMEPRAZOLE 20 MG CAPSULE PO PRN (04:45)
[2022-05-22] MEDS ORDERED: MAGNESIUM HYDROXIDE SUSPENSION 30 ML UDCUP PO PRN (04:45)
[2022-05-22] MEDS ORDERED: MAG HYDROX/AL HYDROX/SIMETH ES 30 ML SUSPENSION UDCUP PO PRN (04:45)
[2022-05-22] MEDS: LEVOTHYROXINE SODIUM 50 MCG TABLET PO SCH (06:43)
[2022-05-22 08:20] VITALS: BP 123/69
[2022-05-22] MEDS: AmLODIPine BESYLATE 10 MG TABLET PO SCH (08:25)
[2022-05-22] MEDS: CHOLECALCIFEROL (VIT D3) 1,000 UNITS [25 MCG] TABLET PO SCH (08:25)
[2022-05-22] MEDS: LOSARTAN POTASSIUM 50 MG TABLET PO SCH (08:26)
[2022-05-22 09:03] LABS: BASOPHILS % (AUTO) 1.1 % (0.0-2.0); HEMATOCRIT 39.2 % (36-46); HEMOGLOBIN 12.9 g/dL (12.0-16.0); LYMPHOCYTES # (AUTO) 1.2 K/uL (1.0-4.8); LYMPHOCYTES % (AUTO) 26.5 % (22.0-44.0); MEAN CORPUSCULAR HEMOGLOBIN 28.6 pg (26.0-34.0); MEAN CORPUSCULAR HGB CONC 32.8 G/dL (31.0-37.0); MEAN CORPUSCULAR VOLUME 87 fL (80-100); MONOCYTES # (AUTO) 0.2 K/uL (0.1-1.0); MONOCYTES % (AUTO) 5.4 % (2.0-9.0); NEUTROPHILS # (AUTO) 2.9 K/uL (1.8-7.7); PLATELET COUNT (AUTO) 197 K/uL (150-450); RED BLOOD CELL COUNT(AUTO) 4.49 MIL/uL (4.00-5.20); RED CELL DISTRIBUTION WIDTH 14.8 % (11.5-14.5)
[2022-05-22 09:34] LABS: ALANINE AMINOTRANSFERASE 53 U/L (12-78); ALKALINE PHOSPHATASE 62 U/L (46-116); ANION GAP 5 mmol/L (8-16); ASPARTATE AMINOTRANSFERASE 35 U/L (15-37); BILIRUBIN,TOTAL 0.4 mg/dL (0.1-1.0); CALCIUM, TOTAL 8.8 mg/dL (8.8-10.5); CARBON DIOXIDE 30 mmol/L (22-29); CHLORIDE 108 mmol/L (98-107); CHOLESTEROL 112 mg/dL (131-200); CREATININE 0.82 mg/dL (0.60-1.30); FREE T4 (FREE THYROXINE) 0.79 ng/dL (0.76-1.46); GLUCOSE,RANDOM 128 mg/dL (70-110); HDL CHOLESTEROL 55 mg/dL (40-60); HEMOGLOBIN A1C 5.2 % (3.8-5.6); LDL CHOL (CALC.) 49 mg/dL (0-130); POTASSIUM 4.1 mmol/L (3.5-5.1); SODIUM SERUM 143 mmol/L (136-145); THYROID STIMULATING HORMONE 0.52 uIU/mL (0.36-3.74); TOTAL PROTEIN, SERUM 6.4 g/dL (6.4-8.2); TRIGLYCERIDES 39 mg/dL (15-150); UREA NITROGEN, BLOOD 13 mg/dL (7-18)
[2022-05-22 09:40] LABS: GLOMERULAR FILTR. RATE CALC > 60 mL/min (>60)
[2022-05-22 20:09] VITALS: BP 139/83
[2022-05-22] MEDS: QUEtiapine FUMARATE 300 MG TABLET PO SCH (20:27)
[2022-05-23] MEDS: LEVOTHYROXINE SODIUM 50 MCG TABLET PO SCH (06:36)
[2022-05-23 08:11] VITALS: BP 105/60
[2022-05-23] MEDS: LOSARTAN POTASSIUM 50 MG TABLET PO SCH (08:14)
[2022-05-23] MEDS: CHOLECALCIFEROL (VIT D3) 1,000 UNITS [25 MCG] TABLET PO SCH (08:14)
[2022-05-23] MEDS: QUEtiapine FUMARATE 300 MG TABLET PO SCH ×2 (08:14→20:01)
[2022-05-23] MEDS: AmLODIPine BESYLATE 10 MG TABLET PO SCH (08:14)
[2022-05-23 08:27] LABS: APPEARANCE,URINE CLEAR (CLEAR); BILIRUBIN,URINE NEGATIVE (NEGATIVE); GLUCOSE, URINE (UA) NEGATIVE (NEGATIVE); KETONES,URINE NEGATIVE (NEGATIVE); LEUKOCYTE ESTERASE ,URINE SMALL (NEGATIVE); NITRATE,URINE NEGATIVE (NEGATIVE); OCCULT BLOOD,URINE NEGATIVE (NEGATIVE); PH,URINE 7.5 (5.0-8.0); PROTEIN,URINE NEGATIVE (NEGATIVE); SPECIFIC GRAVITIY, URINE 1.006 (1.003-1.030); UROBILINOGEN,URINE <=1.0 mg/dL (<=1.0)
[2022-05-23 08:31] LABS: AMPHET/METH SCREEN,URINE NEGATIVE (NEGATIVE); BARBITURATE SCREEN, URINE NEGATIVE (NEGATIVE); BENZODIAZEPINES SCREEN,URINE NEGATIVE (NEGATIVE); CANNABINOID SCREEN,URINE NEGATIVE (NEGATIVE); COCAINE SCREEN,URINE NEGATIVE (NEGATIVE); METHADONE SCREEN, URINE NEGATIVE (NEGATIVE); OPIATE SCREEN,URINE NEGATIVE (NEGATIVE)
[2022-05-23 08:32] LABS: PHENCYCLIDINE SCREEN,URINE NEGATIVE (NEGATIVE)
[2022-05-23 08:38] LABS: BACTERIA,URINE Few /HPF (None Seen); RBC,URINE None Seen /HPF (0-2); SQUAMOUS EPITHELIAL CELL,UR Few /LPF (None Seen); WBC,URINE 0-2 /HPF (0-5)
[2022-05-23 20:09] VITALS: BP 107/76
[2022-05-24] MEDS: LEVOTHYROXINE SODIUM 50 MCG TABLET PO SCH (06:34)
[2022-05-24 08:11] VITALS: BP 117/74
[2022-05-24] MEDS: CHOLECALCIFEROL (VIT D3) 1,000 UNITS [25 MCG] TABLET PO SCH (08:15)
[2022-05-24] MEDS: LOSARTAN POTASSIUM 50 MG TABLET PO SCH (08:15)
[2022-05-24] MEDS: AmLODIPine BESYLATE 10 MG TABLET PO SCH (08:15)
[2022-05-24] MEDS: QUEtiapine FUMARATE 300 MG TABLET PO SCH ×2 (08:15→20:05)
[2022-05-24 16:09] VITALS: BP 114/68
[2022-05-24 20:30] VITALS: BP 121/73
[2022-05-24] MEDS: ONDANSETRON HCL 4 MG TABLET PO PRN (21:08)
[2022-05-25] MEDS: LEVOTHYROXINE SODIUM 50 MCG TABLET PO SCH (06:32)
[2022-05-25 08:48] VITALS: BP 112/69
[2022-05-25] MEDS: AmLODIPine BESYLATE 10 MG TABLET PO SCH (08:54)
[2022-05-25] MEDS: QUEtiapine FUMARATE 300 MG TABLET PO SCH ×2 (08:54→20:16)
[2022-05-25] MEDS: LOSARTAN POTASSIUM 50 MG TABLET PO SCH (08:55)
[2022-05-25] MEDS: CHOLECALCIFEROL (VIT D3) 1,000 UNITS [25 MCG] TABLET PO SCH (08:55)
[2022-05-25 20:23] VITALS: BP 101/68
[2022-05-26] MEDS: LEVOTHYROXINE SODIUM 50 MCG TABLET PO SCH (06:12)
[2022-05-26] MEDS: LOSARTAN POTASSIUM 50 MG TABLET PO SCH (08:25)
[2022-05-26] MEDS: AmLODIPine BESYLATE 10 MG TABLET PO SCH (08:25)
[2022-05-26] MEDS: CHOLECALCIFEROL (VIT D3) 1,000 UNITS [25 MCG] TABLET PO SCH (08:26)
[2022-05-26] MEDS: QUEtiapine FUMARATE 300 MG TABLET PO SCH ×2 (08:26→20:08)
[2022-05-26 08:59] VITALS: BP 113/74
[2022-05-26] MEDS: ONDANSETRON HCL 4 MG TABLET PO PRN (11:18)
[2022-05-26 20:13] VITALS: BP 102/68
[2022-05-27] MEDS: LEVOTHYROXINE SODIUM 50 MCG TABLET PO SCH (06:32)
[2022-05-27 08:13] VITALS: BP 108/67
[2022-05-27] MEDS: AmLODIPine BESYLATE 10 MG TABLET PO SCH (09:00)
[2022-05-27] MEDS: CHOLECALCIFEROL (VIT D3) 1,000 UNITS [25 MCG] TABLET PO SCH (09:00)
[2022-05-27] MEDS: LOSARTAN POTASSIUM 50 MG TABLET PO SCH (09:00)
[2022-05-27] MEDS: QUEtiapine FUMARATE 300 MG TABLET PO SCH ×2 (09:00→20:08)
[2022-05-27 20:08] VITALS: BP 100/64
[2022-05-27] MEDS: ZOLPIDEM TARTRATE 10 MG TABLET PO PRN (20:29)
[2022-05-28] MEDS: LEVOTHYROXINE SODIUM 50 MCG TABLET PO SCH (06:34)
[2022-05-28 08:07] LABS: GLUCOMETER DEV NAME(LOC) POC.BV
[2022-05-28 08:23] VITALS: BP_SYST 108; BP_SYST 60; BP_DIAS 60
[2022-05-28] MEDS: QUEtiapine FUMARATE 300 MG TABLET PO SCH ×2 (08:32→20:08)
[2022-05-28] MEDS: LOSARTAN POTASSIUM 50 MG TABLET PO SCH (08:32)
[2022-05-28] MEDS: AmLODIPine BESYLATE 10 MG TABLET PO SCH (08:32)
[2022-05-28] MEDS: CHOLECALCIFEROL (VIT D3) 1,000 UNITS [25 MCG] TABLET PO SCH (08:32)
[2022-05-28 20:13] VITALS: BP 99/63
[2022-05-29] MEDS: LEVOTHYROXINE SODIUM 50 MCG TABLET PO SCH (06:32)
[2022-05-29] MEDS: LOPERAMIDE HCL 2 MG CAPSULE PO PRN (07:44)
[2022-05-29 08:26] VITALS: BP 113/76
[2022-05-29] MEDS: CHOLECALCIFEROL (VIT D3) 1,000 UNITS [25 MCG] TABLET PO SCH (09:08)
[2022-05-29] MEDS: QUEtiapine FUMARATE 300 MG TABLET PO SCH ×2 (09:09→20:11)
[2022-05-29] MEDS: LOSARTAN POTASSIUM 50 MG TABLET PO SCH (09:09)
[2022-05-29] MEDS: AmLODIPine BESYLATE 10 MG TABLET PO SCH (09:09)
[2022-05-29 21:00] VITALS: BP 110/67
[2022-05-30] MEDS: LEVOTHYROXINE SODIUM 50 MCG TABLET PO SCH (06:14)
[2022-05-30 08:14] VITALS: BP 119/72
[2022-05-30] MEDS: LOPERAMIDE HCL 2 MG CAPSULE PO PRN (08:18)
[2022-05-30] MEDS: LOSARTAN POTASSIUM 50 MG TABLET PO SCH (08:33)
[2022-05-30] MEDS: AmLODIPine BESYLATE 10 MG TABLET PO SCH (08:33)
[2022-05-30] MEDS: QUEtiapine FUMARATE 300 MG TABLET PO SCH ×2 (08:33→20:23)
[2022-05-30] MEDS: CHOLECALCIFEROL (VIT D3) 1,000 UNITS [25 MCG] TABLET PO SCH (08:33)
[2022-05-30 20:00] VITALS: BP 93/63
[2022-05-31] MEDS: LEVOTHYROXINE SODIUM 50 MCG TABLET PO SCH (06:39)
[2022-05-31 08:07] VITALS: BP 110/74
[2022-05-31] MEDS: QUEtiapine FUMARATE 300 MG TABLET PO SCH ×2 (08:50→20:29)
[2022-05-31] MEDS: LOSARTAN POTASSIUM 50 MG TABLET PO SCH (08:50)
[2022-05-31] MEDS: AmLODIPine BESYLATE 10 MG TABLET PO SCH (08:50)
[2022-05-31] MEDS: CHOLECALCIFEROL (VIT D3) 1,000 UNITS [25 MCG] TABLET PO SCH (08:50)
[2022-05-31 21:22] VITALS: BP 102/60
[2022-06-01] MEDS: LEVOTHYROXINE SODIUM 50 MCG TABLET PO SCH (06:34)
[2022-06-01 08:35] VITALS: BP 140/80
[2022-06-01] MEDS: QUEtiapine FUMARATE 300 MG TABLET PO SCH ×2 (08:38→20:05)
[2022-06-01] MEDS: AmLODIPine BESYLATE 10 MG TABLET PO SCH (08:39)
[2022-06-01] MEDS: LOSARTAN POTASSIUM 50 MG TABLET PO SCH (08:39)
[2022-06-01] MEDS: CHOLECALCIFEROL (VIT D3) 1,000 UNITS [25 MCG] TABLET PO SCH (08:39)
[2022-06-01 20:17] VITALS: BP 112/73
[2022-06-02] MEDS: LEVOTHYROXINE SODIUM 50 MCG TABLET PO SCH (06:33)
[2022-06-02 08:12] VITALS: BP 100/71
[2022-06-02] MEDS: QUEtiapine FUMARATE 300 MG TABLET PO SCH ×2 (08:13→20:10)
[2022-06-02] MEDS: CHOLECALCIFEROL (VIT D3) 1,000 UNITS [25 MCG] TABLET PO SCH (08:13)
[2022-06-02] MEDS: LOSARTAN POTASSIUM 50 MG TABLET PO SCH (08:13)
[2022-06-02] MEDS: AmLODIPine BESYLATE 10 MG TABLET PO SCH (08:13)
[2022-06-02 09:00] VITALS: BP 117/74
[2022-06-02 20:34] VITALS: BP 115/72
[2022-06-02] MEDS: ZOLPIDEM TARTRATE 10 MG TABLET PO PRN (21:59)
[2022-06-03] MEDS: LEVOTHYROXINE SODIUM 50 MCG TABLET PO SCH (06:38)
[2022-06-03] MEDS: QUEtiapine FUMARATE 300 MG TABLET PO SCH ×2 (08:26→20:25)
[2022-06-03] MEDS: AmLODIPine BESYLATE 10 MG TABLET PO SCH (08:27)
[2022-06-03] MEDS: LOSARTAN POTASSIUM 50 MG TABLET PO SCH (08:27)
[2022-06-03] MEDS: CHOLECALCIFEROL (VIT D3) 1,000 UNITS [25 MCG] TABLET PO SCH (08:28)
[2022-06-03 08:30] VITALS: BP 121/70
[2022-06-03 20:36] VITALS: BP 118/70
[2022-06-04] MEDS: LEVOTHYROXINE SODIUM 50 MCG TABLET PO SCH (06:15)
[2022-06-04 07:30] LABS: GLUCOMETER DEV NAME(LOC) POC.BV
[2022-06-04 08:05] VITALS: BP 105/65
[2022-06-04] MEDS: QUEtiapine FUMARATE 300 MG TABLET PO SCH ×2 (09:08→20:21)
[2022-06-04] MEDS: CHOLECALCIFEROL (VIT D3) 1,000 UNITS [25 MCG] TABLET PO SCH (09:08)
[2022-06-04] MEDS: LOSARTAN POTASSIUM 50 MG TABLET PO SCH (09:08)
[2022-06-04] MEDS: AmLODIPine BESYLATE 10 MG TABLET PO SCH (09:08)
[2022-06-04 20:18] VITALS: BP 106/68
[2022-06-04] MEDS: ZOLPIDEM TARTRATE 10 MG TABLET PO PRN (20:22)
[2022-06-05] MEDS: LEVOTHYROXINE SODIUM 50 MCG TABLET PO SCH (06:35)
[2022-06-05] MEDS: QUEtiapine FUMARATE 300 MG TABLET PO SCH (08:13)
[2022-06-05] MEDS: AmLODIPine BESYLATE 10 MG TABLET PO SCH (08:13)
[2022-06-05] MEDS: LOSARTAN POTASSIUM 50 MG TABLET PO SCH (08:13)
[2022-06-05] MEDS: CHOLECALCIFEROL (VIT D3) 1,000 UNITS [25 MCG] TABLET PO SCH (08:14)
[2022-06-05 08:29] VITALS: BP 110/64
[2022-06-05] MEDS ORDERED: QUET300T19 PO (11:40)
== END 2022-06-05 13:10 | disposition home or self-care (01) | DRG 750 ==
LOC: B2S 18:10
PROVIDERS: ADMIT Psychiatry & Neurology Psychiatry; ATTEND Psychiatry & Neurology Psychiatry
DX: F25.9 Schizoaffective disorder, unspecified (principal); E11.9 Type 2 diabetes mellitus without complications; E03.9 Hypothyroidism, unspecified; I10 Essential (primary) hypertension; Z20.822 Contact with and (suspected) exposure to COVID-19; M54.9 Dorsalgia, unspecified; Z71.6 Tobacco abuse counseling; Z72.0 Tobacco use
CPT/HCPCS: 80053; 80061; 80307; 81001; 83036; 84439; 84443; 85025; 90686; Q0162

== ENCOUNTER 2022-07-21 15:47 | Emergency (ER) | payer MEDICAID, OTHER ==
[~2022-07-21] VITALS: Ht 152.4 cm; Wt 59.0 kg
[~2022-07-21 15:47] MED LIST changes: -BUPR-72 PO; -LOPE-232 PO; +QUET300T19 PO
[2022-07-21] MEDS ORDERED: BUPR-317 PO (19:38)
[2022-07-21] MEDS ORDERED: TRAZ-257 PO (19:38)
[2022-07-21] MEDS ORDERED: ACETAMINOPHEN 500 MG TABLET PO ONE (19:45)
[2022-07-21 21:47] VITALS: BP 120/80
== END 2022-07-21 22:38 | disposition home or self-care (01) ==
LOC: EMS 15:47
DX: S09.90XA Unspecified injury of head, initial encounter (principal); M54.2 Cervicalgia; F32.A Depression, unspecified; I10 Essential (primary) hypertension; F20.9 Schizophrenia, unspecified; F17.210 Nicotine dependence, cigarettes, uncomplicated; F15.90 Other stimulant use, unspecified, uncomplicated; Y08.89XA Assault by other specified means, initial encounter; Y93.89 Activity, other specified; Y92.89 Other specified places as the place of occurrence of the external cause; Y99.8 Other external cause status
CPT/HCPCS: 70450; 72125; 99284

== ENCOUNTER 2022-08-08 12:35 | Emergency (ER) | payer OTHER ==
[~2022-08-08] VITALS: Ht 152.4 cm; Wt 63.6 kg
[~2022-08-08 12:35] MED LIST changes: +BUPR-317 PO; -QUET300T2 PO; +TRAZ-257 PO
[2022-08-08] MEDS ORDERED: CEPH-558 PO (14:25)
[2022-08-08] MEDS ORDERED: IBUPROFEN 600 MG TABLET PO ONE (14:30)
[2022-08-08] MEDS ORDERED: SULFAMETHOX/TRIMETH DS 800-160 MG/TABLET PO ONE (14:30)
[2022-08-08] MEDS ORDERED: CEPHALEXIN MONOHYDRATE 500 MG CAPSULE PO ONE (14:30)
[2022-08-08 15:16] VITALS: BP 141/72
== END 2022-08-08 15:34 | disposition home or self-care (01) ==
LOC: EMS 12:42
DX: L02.414 Cutaneous abscess of left upper limb (principal); F32.A Depression, unspecified; I10 Essential (primary) hypertension; F20.9 Schizophrenia, unspecified; K75.9 Inflammatory liver disease, unspecified; F17.210 Nicotine dependence, cigarettes, uncomplicated; F15.90 Other stimulant use, unspecified, uncomplicated
CPT/HCPCS: 99284; Z7502; Z7610

== ENCOUNTER 2022-09-22 20:24 | Emergency (ER) | payer OTHER ==
[~2022-09-22] VITALS: Ht 167.6 cm; Wt 75.0 kg
[~2022-09-22 20:24] MED LIST changes: +CEPH-558 PO
[2022-09-22] MEDS ORDERED: SODIUM CHLORIDE 0.9% 1,000 ML IV ONE (21:00)
[2022-09-22] MEDS ORDERED: METOCLOPRAMIDE HCL 5 MG/ML 2 ML VIAL IVP ONE (21:00)
[2022-09-22 21:11] LABS: BASOPHILS % (AUTO) 0.7 % (0.0-2.0); EOSINOPHILS % (AUTO) 1.3 % (1.0-6.0); HEMATOCRIT 44.7 % (36-46); HEMOGLOBIN 14.9 g/dL (12.0-16.0); LYMPHOCYTES # (AUTO) 1.5 K/uL (1.0-4.8); LYMPHOCYTES % (AUTO) 17.7 % (22.0-44.0); MEAN CORPUSCULAR HEMOGLOBIN 29.1 pg (26.0-34.0); MEAN CORPUSCULAR HGB CONC 33.4 G/dL (31.0-37.0); MEAN CORPUSCULAR VOLUME 87 fL (80-100); MONOCYTES # (AUTO) 0.7 K/uL (0.1-1.0); NEUTROPHILS # (AUTO) 6.2 K/uL (1.8-7.7); NEUTROPHILS % (AUTO) 72.3 % (40.0-70.0); PLATELET COUNT (AUTO) 273 K/uL (150-450); RED BLOOD CELL COUNT(AUTO) 5.12 MIL/uL (4.00-5.20); RED CELL DISTRIBUTION WIDTH 14.5 % (11.5-14.5)
[2022-09-22 21:22] LABS: CALCIUM, TOTAL 9.5 mg/dL (8.8-10.5); CREATININE 1.27 mg/dL (0.60-1.30)
[2022-09-22 21:28] LABS: ALBUMIN 4.2 g/dL (3.4-5.0); BILIRUBIN,TOTAL 1.2 mg/dL (0.1-1.0); TOTAL PROTEIN, SERUM 8.2 g/dL (6.4-8.2)
[2022-09-22 22:34] LABS: APPEARANCE,URINE CLEAR (CLEAR); BILIRUBIN,URINE NEGATIVE (NEGATIVE); GLUCOSE, URINE (UA) NEGATIVE (NEGATIVE); KETONES,URINE 40-60 mg/dL (NEGATIVE); LEUKOCYTE ESTERASE ,URINE SMALL (NEGATIVE); NITRATE,URINE NEGATIVE (NEGATIVE); OCCULT BLOOD,URINE NEGATIVE (NEGATIVE); PROTEIN,URINE 30-70 mg/dL (NEGATIVE); SPECIFIC GRAVITIY, URINE 1.026 (1.003-1.030); UROBILINOGEN,URINE <=1.0 mg/dL (<=1.0)
[2022-09-22 22:40] LABS: AMPHET/METH SCREEN,URINE POSITIVE (NEGATIVE); BARBITURATE SCREEN, URINE NEGATIVE (NEGATIVE); BENZODIAZEPINES SCREEN,URINE NEGATIVE (NEGATIVE); CANNABINOID SCREEN,URINE POSITIVE (NEGATIVE); COCAINE SCREEN,URINE NEGATIVE (NEGATIVE); METHADONE SCREEN, URINE NEGATIVE (NEGATIVE); OPIATE SCREEN,URINE NEGATIVE (NEGATIVE); PHENCYCLIDINE SCREEN,URINE NEGATIVE (NEGATIVE)
[2022-09-22] MEDS ORDERED: POTASSIUM CHLORIDE 20 MEQ ER TABLET PO ONE (22:45)
[2022-09-22 22:51] LABS: BACTERIA,URINE Moderate /HPF (None Seen); RBC,URINE None Seen /HPF (0-2); SQUAMOUS EPITHELIAL CELL,UR None Seen /LPF (None Seen)
[2022-09-23 01:18] VITALS: BP 124/90
== END 2022-09-23 01:24 | disposition home or self-care (01) ==
LOC: EMS 20:25
DX: R11.2 Nausea with vomiting, unspecified (principal); K52.9 Noninfective gastroenteritis and colitis, unspecified; K80.20 Calculus of gallbladder without cholecystitis without obstruction; E78.00 Pure hypercholesterolemia, unspecified; I10 Essential (primary) hypertension; F20.9 Schizophrenia, unspecified; G43.909 Migraine, unspecified, not intractable, without status migrainosus; F17.210 Nicotine dependence, cigarettes, uncomplicated; F15.90 Other stimulant use, unspecified, uncomplicated; Z91.040 Latex allergy status; Z98.890 Other specified postprocedural states
CPT/HCPCS: 99285; 74176; 96374; 96361; 80053; 81001; 83690; 84484; 85025; 36415; 87086; 87186; 93005; 80307 ×2; G0480; J2765; J7030